=== PATIENT | female | born 1975 ===

== ENCOUNTER 2021-01-30 11:14 | Outpatient (REF) | payer OTHER, SELFPAY ==
[2021-01-30 12:03] LABS: Influenza A PCR NEGATIVE (Negative); Influenza B PCR NEGATIVE (Negative); Resp Syncy Virus RNA Qual PCR NEGATIVE (Negative); SARS COV2 PCR INHOUSE NEGATIVE (Negative)
== END 2021-01-30 11:15 | disposition home or self-care (01) ==
LOC: HO.LNP 11:14
PROVIDERS: Visit Provider Internal Medicine
DX: Z20.822 Contact with and (suspected) exposure to COVID-19 (principal)
CPT/HCPCS: 0241U

== ENCOUNTER 2021-04-03 14:42 | Outpatient (REF) | payer OTHER, SELFPAY ==
[2021-04-03 15:31] LABS: Influenza A PCR NEGATIVE (Negative); Influenza B PCR NEGATIVE (Negative); Resp Syncy Virus RNA Qual PCR NEGATIVE (Negative); SARS COV2 PCR INHOUSE POSITIVE (Negative)
== END 2021-04-03 14:43 | disposition home or self-care (01) ==
LOC: HO.LNP 14:42
PROVIDERS: Visit Provider Internal Medicine
DX: Z20.822 Contact with and (suspected) exposure to COVID-19 (principal)
CPT/HCPCS: 0241U

== ENCOUNTER 2021-08-15 07:55 | Outpatient (REF) | payer OTHER, SELFPAY ==
--- NOTE | ~2021-08-15 | MM_ITS ---
EXAMINATION: MM DIAGNOSTIC DIGITAL BREAST TOMOSYNTHESIS, BILATERAL US DIAGNOSTIC ULTRASOUND BREAST, LEFT CLINICAL INFORMATION: 45-year-old with palpable area of concern 4:00 left breast for one month, increasing. No discharge. No known family history breast cancer. The lifetime risk of breast cancer based on the Tyrer-Cuzick Model is 6%. COMPARISON: Mammography: 03/20/2019, 03/13/2019, 03/07/2018, 07/23/2016 TECHNIQUE: Digital breast tomosynthesis is performed in both the craniocaudal and mediolateral oblique views along with computer-aided detection (CAD). Synthesized 2D images are generated from the tomosynthesis. Additional views are obtained: Left spot CC, left spot MLO. Ultrasound left breast is targeted to the area of clinical concern lower outer left breast. Patient is able to directly point to the area of concern at time of imaging. Grayscale imaging and color Doppler are performed without and with harmonics. FINDINGS: The breasts are heterogeneously dense, which may obscure small masses (ACR BI-RADS breast composition Category c). Parenchymal pattern is similar to prior studies. There is no developing density or interval mass. There is no definite architectural abnormality. The axilla are unremarkable. There are no abnormal calcifications. The skin contours are smooth. Ultrasound targeted to the lower outer left breast demonstrates a subtle area of decreased echogenicity corresponding to the palpable concern with irregular shape and overall size 1.4 x 0.7 cm. There is increased color flow localized to this area. Finding resides 0.7 cm below the skin surface. There are other scattered asymmetries in the lower outer quadrant which may have similar appearance but without increased color flow. Finding is subtle and may represent benign asymmetric tissue or other benign entity such as focal fibrosis or PASH. Results are discussed with the patient at time of visit. Recommend ultrasound-guided core sampling. Patient is in agreement. Results and recommendation called to medical grade shoemaker (Linh) for Dr. Mcneal on 08/15/2021. MM/MM tomosynthesis diagnostic BI IMPRESSION: 1. Mammography shows no significant changes from prior studies. 2. Subtle ultrasound finding corresponding to area of patient's clinical palpable concern. ASSESSMENT: BI-RADS 4: Suspicious (subcategory 4A: Low suspicion for malignancy) RECOMMENDATION: Ultrasound-guided core biopsy left breast. This patient's information was entered into a reminder system with a target due date for their next mammogram.
== END 2021-08-15 07:56 | disposition home or self-care (01) ==
LOC: HO.MAMMO 07:55
PROVIDERS: PCP Internal Medicine; Visit Provider Internal Medicine
DX: N63.23 Unspecified lump in the left breast, lower outer quadrant (principal)
CPT/HCPCS: 76642; 77062; 77066

== ENCOUNTER 2021-08-21 09:09 | Outpatient (REF) | payer OTHER, SELFPAY ==
--- NOTE | ~2021-08-21 | MM_ITS ---
PROCEDURE: US GUIDED BREAST BIOPSY, LEFT CLINICAL INFORMATION: Hypoechoic vascular structure 4 clock position COMPARISON: August 25, 2021 and studies dating back to July 23, 2016 PROCEDURAL DETAILS: The details of the procedure, as well as the risks, benefits, and alternatives to the procedure were explained to the patient in detail and all of her questions were answered, after which written informed consent was obtained. Site and side were confirmed. Prior to the procedure, sonography revealed a vascular hypoechoic lesion 4:00 position 4 cm from the nipple. A time-out was performed, the lesion intended for biopsy was targeted, and the skin of the left breast was then prepped and draped in the usual sterile fashion. Using sonographic guidance, sterile technique, and 1% lidocaine without epinephrine for local anesthesia, multiple automated core biopsies were obtained through the targeted area with a 14G spring loaded Achieve core biopsy device. There was real-time confirmation of appropriate needle passage. Sampling was documented. At the completion of tissue sampling, a single butterfly-shaped metallic clip was deposited at the biopsy site. There was no evidence of immediate complication. SPECIMEN: An appropriate sample was obtained. DIGITAL POST-PROCEDURE MAMMOGRAPHY: Breast density: The tissue is extremely dense, which lowers the sensitivity of mammography. BI-RADS version 5, category D. There are no new mammographic findings demonstrated. The postprocedure 2-view direct digital mammogram reveals satisfactory positioning of the biopsy clip. The patient tolerated the procedure well and, after assuring adequate hemostasis, was discharged in good condition after reviewing postbiopsy breast care instructions. Final pathology results are pending. MM/MM diagnostic mammo unilat LT IMPRESSION: 1. No immediate complication from ultrasound-guided percutaneous biopsy left breast. 2. Ultrasound was used to localize and guide marker clip placement. 3. The 2-view direct digital postprocedure mammogram reveals satisfactory positioning of the biopsy clip. 4. Final pathology results are pending. A separate report with final recommendations will be issued once these results are made available.
== END 2021-08-21 09:10 | disposition home or self-care (01) ==
LOC: HO.MAMMO 09:09
PROVIDERS: PCP Internal Medicine; Visit Provider Surgery
DX: N63.21 Unspecified lump in the left breast, upper outer quadrant (principal)
CPT/HCPCS: 19083; 77065; 88305; 88342; 88360

== ENCOUNTER → 2021-08-27 08:54 | Outpatient (BNVA) | payer OTHER, SELFPAY | PROVIDERS: PCP Internal Medicine; Referring Provider Internal Medicine; Visit Provider Surgery | DX: N63.20 Unspecified lump in the left breast, unspecified quadrant (principal) ==

== ENCOUNTER → 2021-09-18 09:00 | Outpatient (BNV) | payer MEDICAID, OTHER, SELFPAY | PROVIDERS: PCP Internal Medicine; Referring Provider Surgery; Visit Provider Internal Medicine Medical Oncology | DX: C50.912 Malignant neoplasm of unspecified site of left female breast (principal) | CPT/HCPCS: 99204; 99213; 99214 ==

== ENCOUNTER 2021-09-23 06:53 | Day surgery (SDC) | payer OTHER, SELFPAY ==
[2021-09-17 10:19] VITALS: BMI 28.7
--- NOTE | 2021-09-22 10:25 | P.CONAN_ITS ---
Documented by User: Lluvia Chavez NP 09/22/21 10:26 HPI - Anesthesia Eval Consult details Narrative: 45yo F for Left [place] Node Biopsy, Breast Biopsy Needle Localization Breast Lumpectomy PMFSH Active Problems Active Problems: All Active Problems (Updated 09/18/21 @ 10:00 by Analy Avelar MD) Breast cancer, left (Acute) Left breast mass (Acute) Past Medical History Medical History (Updated 09/18/21 @ 10:00 by Analy Avelar MD) Breast cancer, left History of COVID-19 Left breast mass Family History Family History Other Breast cancer Surgical History Surgical History (Updated 09/18/21 @ 10:00 by Analy Avelar MD) Surgical history unknown Social History Social History Alcohol intake: never Patient Tobacco Use Status: Never used Tobacco Advance Directives Information Provided: Yes (informational brochure mailed) Advance Directives on File: No Meds Allergies Allergy/AdvReac Type Severity Reaction Status Date / Time No Known Allergies Allergy Verified 08/27/21 09:02 Active Medications: Current Medications Lidocaine HCl (Lidocaine 4 % Cream Kit) 1 appl TOPICAL ONCE ONE; Protocol Stop: 09/23/21 09:44 Exam Exam Date and Time: September 22, 2021 1025 Height,Weight and Vital Signs: Height 5 ft Weight 66.7 kg Pertinent Lab Results Pertinent Lab Results: Laboratory Tests 09/18/21 09/18/21 10:25 10:25 WBC 8.6 Hgb 11.9 L Hct 36.9 L Plt Count 341 Sodium 138 Potassium 4.8 Chloride 107 Carbon Dioxide 25 BUN 15 Creatinine 0.78 Assessment and Plan Assessment Anesthesia Assessment: Chart Reviewed Documented by User: Yaya Mccoy MD 09/23/21 10:08 PMFSH Past Medical History Medical History (Updated 09/18/21 @ 10:00 by Analy Avelar MD) Breast cancer, left History of COVID-19 Left breast mass Family History Family History Other Breast cancer Family history of problems with anesthesia: No Surgical History Surgical History (Updated 09/18/21 @ 10:00 by Analy Avelar MD) Surgical history unknown History of Problems with Anesthesia: No Social History Social History Alcohol intake: never Patient Tobacco Use Status: Never used Tobacco Advance Directives Information Provided: Yes (informational brochure mailed) Advance Directives on File: No Meds Allergies Allergy/AdvReac Type Severity Reaction Status Date / Time No Known Allergies Allergy Verified 08/27/21 09:02 Exam Airway Mallampati Class: I TM Dist: >3cm Neck ROM: Full Loose/Missing/Broken Teeth: No Assessment and Plan Final Anesthetic Review Family History of Problems with Anesthesia: No History of Problems with Anesthesia: No ASA Class: II Final Preanesthetic Review: No Changes in Pt Med Stat, Meds/Allgs Chart Reviewed, Consent Obtained/Reviewed and Anes Risks/Benef Reviewed Patient Risk: Low Procedure Risk: Low Anesthetic Plan Anesthetic Plan: GA and Agree w/ Assess. and Plan Disposition: Standard PACU
[2021-09-23] VITALS (10 sets, daily range): BP systolic 99–115; BP diastolic 54–73; PULSE 49–81; RESP 16–18; TEMP 36.3–36.8; O2SAT 97–99
--- NOTE | ~2021-09-23 | MM_ITS ---
EXAMINATION: MM MAMMOGRAM GUIDED NEEDLE LOCALIZATION BREAST, LEFT MM NEEDLE LOCALIZATION SPECIMEN FROM THE LEFT BREAST CLINICAL INFORMATION: Invasive carcinoma with ductal and lobular features left breast. COMPARISON: Mammography 08/15/2021, 08/21/2021, targeted left breast ultrasound 08/15/2021, ultrasound-guided left breast biopsy 08/21/2021. TECHNIQUE NEEDLE LOC: Proper informed consent is obtained from the patient for both the localization procedure and sentinel lymph node mapping after discussion of the procedure, potential risks and complications, and alternatives including declining the procedure today. Patient was given an opportunity for questions. The patient appeared to understand. The patient consented to the procedure and signed the consent form. GUIDANCE: Digital mammography. APPROACH: Lateral Medial. TARGET: Butterfly biopsy clip marker anterior outer quadrant. ANESTHESIA: Carbonated lidocaine 1%: 5 mL. LOCALIZATION MARKER: [place] Mamma[employer], 7.5 cm length. The skin is prepped and local anesthesia administered. The needle is positioned and position assessed with mammography. The wire is hooked into position. [place] needle protector placed. The patient tolerated the procedure well and had no immediate complication. Following the procedure, 4% lidocaine ointment was administered to the left areola and covered with Tegaderm in anticipation of nuclear lymphoscintigraphy injection for sentinel lymph node mapping. Procedure findings discussed with Dr. Carballo prior to surgery. TECHNIQUE SPECIMEN RADIOGRAPH: Imaging of the excised specimen is performed using digital mammography in 2 views. FINDINGS SPECIMEN RADIOGRAPH: The specimen shows the distal needle and distal hookwire are delivered intact. The biopsy clip marker is not demonstrated in the specimen. There are some fine calcifications adjacent to the needle, not necessarily part of the primary lesion. Results were called and discussed with Dr. Carballo in the operating room at the time of imaging. MM/MM needle loc LT IMPRESSION: 1. Status post left breast needle localization with wire hooked into position. 2. Post operative specimen radiograph obtained.
--- NOTE | ~2021-09-23 | NM_ITS ---
EXAMINATION: NM LYMPHOSCINTIGRAPHY CLINICAL INFORMATION: Malignant neoplasm of left breast. COMPARISON: None TECHNIQUE: Following explaining procedure, benefits and risk of the left breast sentinel node, a written consent was obtained by Dr. Loaiza. 2% lidocaine jelly cream was applied around the left breast areola. 30 minutes later the cream was cleaned in aseptic manner. 0.5 mCi of Lymphoseek in 4 equal doses were injected subcutaneously around the 4 corners of the areola. Imaging of the chest was obtained approximately 30 minutes later patient tolerated procedure extremely well. FINDINGS: There is isotope activity seen in the 4 quadrants around the left breast areola. There are two lymph nodes with isotope activity seen in left axilla the larger one in the anterior inferior axilla. No additional areas of lymph node activity seen. NM/NM sentinel node w imaging IMPRESSION: Two sentinel nodes visualized in left anterior axilla, the larger one anterior and inferior in the axilla, on left breast lymphoscintigraphy.
--- NOTE | 2021-09-23 09:33 | MHC.SHP ---
Pre-Procedural Eval Section A Date of Service: 09/23/21 Section B Chief Complaint: malignant neoplasm of left breast Allergies: Allergies Allergy/AdvReac Type Severity Reaction Status Date / Time No Known Allergies Allergy Verified 08/27/21 09:02 Plan I have reviewed the history and physical and performed a pertinent physical examination on my patient. No changes have occurred unless specified.
--- NOTE | 2021-09-23 12:23 | W.PM.OPN ---
Operative Note Operative Note Date of Service: 09/23/21 Narrative: Preop diagnosis: Left breast, invasive carcinoma, with ductal and lobular features Postop diagnosis: As above Procedure: Lumpectomy, left breast with needle localization, sentinel node biopsy Surgeon: Dariel Carballo MD specimen preparation assistant: GLENNY Estrada The patient is a 45 year female who had recently been diagnosed to have left breast invasive carcinoma with both ductal and lobular features on a breast biopsy. I therefore had discussion with her about treatment. She was aware of the options of breast conservation therapy versus mastectomy. She wanted to proceed with lumpectomy. I discussed with the technique of lumpectomy with needle localization and sentinel node biopsy. She was aware of the risks, benefits, and alternatives and she wanted to proceed. She was brought to the operating room placed supine on the table under general anesthesia via laryngeal mask airway. The left arm was abducted to expose the left axilla. The left breast and left axilla were prepped and draped in the usual sterile fashion. A surgical time-out was done. The patient received cefazolin The patient had earlier undergone the localization and I had reviewed the films with the radiologist. The patient had undergone nuclear scintigraphy as well for sentinel nodes. The localizing needle was seen entering from inferior and laterally going a little bit superior medially at the 4 o'clock position of the left breast. I infiltrated the planned line of incision using lidocaine 1%. I made an transverse incision on the lower outer quadrant left breast tangential to the localizing needle using blade 15. This carried down through the full-thickness of the skin and and into the breast tissue. When I then proceeded to use a curved Powell to divide breast tissue surrounding the needle. We followed the direction the needle, dividing breast tissue and making sure that we had wide margins surrounding the needle itself. I was also palpating the breast tissue as we proceeded with dissection to make sure that we were not missing any indurated area. We continued to dissect circumferentially around the entire length of the needle and made sure that I was past the needle on palpation. I completed the dissection posteriorly. I marked the superior margin with a short stitch and lateral margin with a long stitch. This was sent for immediate gross as well as immediate re- ray. I copiously irrigated. I felt for any palpable induration or any obvious lesions around the lumpectomy margins. I used electrocautery for hemostasis. I then applied a light packing to the biopsy cavity and covered this with a Tegaderm. We then proceeded to change our set up for the sentinel node biopsy. We also changed into fresh gloves. I used the nuclear probe to identify the maximal radiation counts in the axilla. I made the incision on the skin where the approximate maximal counts was using blade 15. I carried this down through the full-thickness skin with electrocautery and used the Metzenbaum scissors to dissect through the axillary fat gently. I then proceeded to continue to do sharp dissection, periodically checking orientation and direction using the nuclear probe to guide us into the elevated counts in the axilla. This appeared to be close to the apex. This was consistent with the scintigraphy imaging which I had reviewed earlier as well. With the use of the probe periodically, I was able to then identify a sentinel node. This was carefully dissected with the Metzenbaum scissors and was sent as a specimen. The count for this sentinel node was 1100. I proceeded to continue to dissect into the deep axilla and under the pectoralis and there was a positive reading on this area. I continued to gently dissect using combination of sharp dissection with the Metzenbaum scissors as well as with the fingers to identify lymph node and was able to see a lymph node with a count of 6519. This was excised and sent for specimen as well. This appeared to be a level 2 lymph node based on the location. I proceeded to then scan the entire axilla and there were no other elevated counts above 10% of the I as reading earlier. I was able to identify 3 other lymph nodes without elevated counts and all of these were sent for pathology as well. I observed for hemostasis. Once hemostasis was ensured I reapposed the subcutaneous layer with Dexon 3-0 interrupted sutures. Skin closure was achieved with Dexon 4-0 subcuticular stitch. I then received a phone call from both the radiologist as well as the pathologist. The radiologist stated that the entire localizing needle with the hook was in good position but the biopsy clip was not visualized on re-ray images. I also discussed the specimen for immediate gross with the pathologist and it appeared that we had the entire mass within the specimen but the margins superiorly as well as laterally appear to be close. I therefore proceeded to reopen the lumpectomy site, and removed more breast tissues at the area of the anterior superior border of the biopsy cavity, as well as laterally. This was sent as separate specimens as well. Since the biopsy clip was not visible on re-ray as well as immediate gross, proceeded to carefully look for any semblance of a biopsy clip in the ecxision cavity both by direct visualization as well as palpation. Despite a thorough examination, we did not identify any biopsy clip within the cavity. It was therefore likely that this was suctioned. I therefore reapposed the subcutaneous layer with Dexon 3-0 interrupted sutures. Skin closure was achieved with Dexon 4-0 subcuticularrunning stitch on the lumpectomy site. The incisions were infiltrated with Marcaine 0.5% for postop analgesia. Steri-Strips and dressings were applied and the procedure was completed. The patient tolerated procedure well with no complication noted. Initial fine counts of sponges and instruments were correct. Estimated blood loss was about 25 cc. The patient was extubated without difficulty and transferred to the recovery room with stable vital signs. Breast [place] Node Biopsy Substrate(s) used for sentinel node biopsy in the non-neoadjuvant setting: Radiotracer All significantly radioactive nodes were removed, if radionuclide was used as the substrate for localization: Yes All palpably suspicious nodes were removed, if present: Yes If clips were placed in pathology-involved nodes, those nodes were identified and removed: N/A General Surg. - Synoptic Notes Breast [place] Node Biopsy Substrate(s) used for sentinel node biopsy in the non-neoadjuvant setting: Radiotracer All significantly radioactive nodes were removed, if radionuclide was used as the substrate for localization: Yes All palpably suspicious nodes were removed, if present: Yes If clips were placed in pathology-involved nodes, those nodes were identified and removed: N/A
--- NOTE | 2021-09-23 12:38 | PM.OP ---
Brief Operative Note Date of Service: 09/23/21 Pre-op diagnosis: Left breast cancer, with both ductal and lobular features Post-op diagnosis: same Procedure: Lumpectomy, left breast with needle localization and sentinel node biopsy Surgeon: Dariel Carballo MD Anesthesia: GLMA Was an Pasting Machine Offbearer used for this Procedure?: Yes Pasting Machine Offbearer: Debora Estrada Estimated blood loss (mL): 25 Pathology: other (1.Lumpectomy specimen 2.[place] node -1100 count 3. sentinel node 2 - 6519 ; three additional lymph nodes; additional margins - superior, lateral) Condition: stable Disposition: PACU
[2021-09-23] MEDS: Acetaminophen 325 MG TABLET 650 MG PO (12:54)
[2021-09-23] MEDS: oxyCODONE HCl Immed Release 5 MG TABLET PO (12:54)
== END 2021-09-23 14:46 | disposition home or self-care (01) ==
PROVIDERS: PCP Internal Medicine; Visit Provider Surgery
PROC: (CPT 19301; principal; 2021-09-23 10:50)
PROC: (CPT 19301; 2021-09-23 10:50)
DX: C50.512 Malignant neoplasm of lower-outer quadrant of left female breast (principal); Z86.16 Personal history of COVID-19
CPT/HCPCS: 19301; 38525; 19281; 78195; 88305; 88307; 88329; 88341; 88342; A9520; J0690; J1100; J2250; J2405; J3010

== ENCOUNTER → 2021-10-06 10:33 | Outpatient (BNVA) | payer OTHER, SELFPAY | PROVIDERS: PCP Internal Medicine; Referring Provider Internal Medicine; Visit Provider Surgery ==

== ENCOUNTER 2021-10-21 09:56 | Outpatient (REF) | payer OTHER, SELFPAY ==
--- NOTE | ~2021-10-21 | PE_ITS ---
EXAMINATION: PET CT fusion skull to thigh Initial treatment strategy - PI CLINICAL INFORMATION: Left breast cancer COMPARISON: None. TECHNIQUE: Fingerstick blood sugar prior to exam was 83 mg/dL. 16.3 mCi fluorine-18 FDG administered IV. Following approximately 45 minutes of uptake, multibed PET acquisition was performed preceded by a non-contrast CT scan for the purposes of localization and attenuation correction. FINDINGS: Head and neck: Physiologic FDG distribution. Partially imaged brain is normal. No mass or midline shift. There is right maxillary sinus disease. No cervical lymphadenopathy or mass. Chest: No pulmonary nodules or masses. No hilar or mediastinal lymphadenopathy. No internal mammary lymphadenopathy. No right axillary lymphadenopathy. There is ill-defined soft tissue irregularity of the left axilla and image 187/267 measuring 2.4 x 1.7 cm, likely reflecting postoperative changes. There is mild associated FDG uptake to maximum SUV 1.6. No discrete axillary lymphadenopathy seen. No prior studies available to assess for interval change. There is symmetric uptake associated with the bilateral breasts tissues with no focal hypermetabolic abnormality. No pulmonary nodules or masses. Abdomen/pelvis: Physiologic FDG distribution. Lack of intravenous contrast limits evaluation but there is no gross focal abnormality of the liver, spleen, pancreas, bilateral kidneys, or adrenal glands. No pathologically enlarged lymphadenopathy. No ascites. There is linear uptake in the left pelvis, maximum SUV 4.7. This is more anterior in position than would be expected for the left ureter in its likely related to the left ovary, although there is misregistration between the PET and CT images. There is a normal-appearing 2.6 cm simple appearing cyst of the left ovary but no concerning left adnexal mass. Normal appearing right ovary. Normal CT appearance of the uterus. Extremities: Physiologic FDG distribution. PET/PET CT fusion skull to thigh IMPRESSION: Likely postoperative changes in the left lateral breast/axilla with mild FDG uptake maximum SUV 1.6. Consider attention on follow-up. Linear uptake in the left pelvis is physiologic and likely related to the left ovary. There is a 2.6 cm simple appearing cyst in the left ovary. If the patient is premenopausal, these would be consistent with physiologic findings for which no imaging follow-up would be recommended. If the patient is perimenopausal or postmenopausal, a pelvic ultrasound could be obtained to further evaluate the left ovary. No additional findings in the neck, chest, abdomen, or pelvis to suggest sites of residual or metastatic disease.
== END 2021-10-21 09:57 | disposition home or self-care (01) ==
LOC: HO.PET 09:56
PROVIDERS: PCP Internal Medicine; Visit Provider Internal Medicine Medical Oncology
DX: Z13.89 Encounter for screening for other disorder (principal)

== ENCOUNTER → 2021-10-22 14:31 | Outpatient (BNVA) | payer OTHER, SELFPAY | PROVIDERS: PCP Internal Medicine; Referring Provider Internal Medicine; Visit Provider Surgery ==

== ENCOUNTER 2021-10-30 07:06 | Day surgery (SDC) | payer OTHER, SELFPAY ==
--- NOTE | ~2021-10-30 | IR_ITS ---
PROCEDURE: RIGHT INTERNAL JUGULAR PORT PLACEMENT UNDER SONOGRAPHIC AND FLUOROSCOPIC GUIDANCE CLINICAL INFORMATION: Left breast cancer for chemotherapy. ACCESS: Right internal jugular vein. TECHNIQUE/FINDINGS: Informed consent was obtained from the patient prior to the procedure. During this process, the procedure and potential alternatives was explained, along with the intended outcome and benefits. The risks of the procedure, as well as the risks of not doing the procedure, were discussed. The patient was given the opportunity to ask questions regarding the procedure and appeared competent to make medical decisions. A signed consent form which documents this discussion was placed in the medical record. The patient was brought to the conventional radiology suite and a time out procedure was performed. A sonographic survey was performed for localization of venous access. The right jugular vein was confirmed to be patent. Image was sent to PACS for documentation. The right neck and anterior hemithorax was prepared. ?All elements of maximal sterile barrier technique followed including use of cap, mask, sterile gown, sterile gloves, a sterile full body drape and hand hygiene. Also followed skin preparation with 2% chlorhexidine for cutaneous antisepsis, and sterile ultrasound preparation with sterile gel and probe cover when applicable.? Following administration of local anesthesia using 1% lidocaine, a puncture was performed of the right internal jugular vein above the clavicle under direct sonographic visualization. A [employer] wire was advanced into the needle to the superior vena cava. Over the wire, a 5-Macedonian micropuncture catheter was placed and through this a 0.035 Macedonian guidewire was positioned in the inferior vena cava. Attention was then turned to creating a port pocket a few centimeters below the right clavicle. Scalpel incision was made and port pocket blunt dissected out. The 6.6-Macedonian catheter was then tunneled from the port pocket to the internal jugular puncture site. A Peel-Away sheath was then placed over the guidewire and, through the Peel-Away sheath, the port catheter was placed with the tip at the cavoatrial junction. The catheter was then cut to 22 cm and locked to the port. The port was then sewn into the port pocket with two 3-0 monofilament sutures. The port pocket was closed with a 4-0 absorbable running subcuticular suture. The port was then heparinized with Hep-Lock solution of 100 units of heparin per milliliter. The patient tolerated the procedure well. There was no evidence of complications. FLUOROSCOPY TIME: 1.4 minutes DAP: 220 cGy-cm2 IR/IR cvc insert tunnel w prt/television and radio repairer IMPRESSION: Successful placement of a 22 cm length right internal jugular port under a combination of sonographic and fluoroscopic guidance. No evidence of complications.
--- NOTE | ~2021-10-30 | IR_ITS ---
PROCEDURE: RIGHT INTERNAL JUGULAR PORT PLACEMENT UNDER SONOGRAPHIC AND FLUOROSCOPIC GUIDANCE CLINICAL INFORMATION: Left breast cancer for chemotherapy. ACCESS: Right internal jugular vein. TECHNIQUE/FINDINGS: Informed consent was obtained from the patient prior to the procedure. During this process, the procedure and potential alternatives was explained, along with the intended outcome and benefits. The risks of the procedure, as well as the risks of not doing the procedure, were discussed. The patient was given the opportunity to ask questions regarding the procedure and appeared competent to make medical decisions. A signed consent form which documents this discussion was placed in the medical record. The patient was brought to the conventional radiology suite and a time out procedure was performed. A sonographic survey was performed for localization of venous access. The right jugular vein was confirmed to be patent. Image was sent to PACS for documentation. The right neck and anterior hemithorax was prepared. ?All elements of maximal sterile barrier technique followed including use of cap, mask, sterile gown, sterile gloves, a sterile full body drape and hand hygiene. Also followed skin preparation with 2% chlorhexidine for cutaneous antisepsis, and sterile ultrasound preparation with sterile gel and probe cover when applicable.? Following administration of local anesthesia using 1% lidocaine, a puncture was performed of the right internal jugular vein above the clavicle under direct sonographic visualization. A [employer] wire was advanced into the needle to the superior vena cava. Over the wire, a 5-Somali micropuncture catheter was placed and through this a 0.035 Somali guidewire was positioned in the inferior vena cava. Attention was then turned to creating a port pocket a few centimeters below the right clavicle. Scalpel incision was made and port pocket blunt dissected out. The 6.6-Somali catheter was then tunneled from the port pocket to the internal jugular puncture site. A Peel-Away sheath was then placed over the guidewire and, through the Peel-Away sheath, the port catheter was placed with the tip at the cavoatrial junction. The catheter was then cut to 22 cm and locked to the port. The port was then sewn into the port pocket with two 3-0 monofilament sutures. The port pocket was closed with a 4-0 absorbable running subcuticular suture. The port was then heparinized with Hep-Lock solution of 100 units of heparin per milliliter. The patient tolerated the procedure well. There was no evidence of complications. FLUOROSCOPY TIME: 1.4 minutes DAP: 220 cGy-cm2 IR/IR us guide venous access IMPRESSION: Successful placement of a 22 cm length right internal jugular port under a combination of sonographic and fluoroscopic guidance. No evidence of complications.
[2021-10-30 07:20] VITALS: BMI 29.7
[2021-10-30 07:22] VITALS: BP 104/55; PULSE 60; RESP 16; TEMP 36.1; O2SAT 98
[2021-10-30 07:40] LABS: MANUAL DIFF FLAG NO
[2021-10-30 07:42] LABS: Basophils Absolute Auto 0.1 X10*3/uL (0.0-0.2); Basophils Percent Auto 0.7 % (0-2); Eosinophils Absolute Auto 0.3 X10*3/uL (0.0-0.4); Eosinophils Percent Auto 4.2 % (0-4); Hematocrit 35.1 % (37.0-47.0); Hemoglobin 11.5 g/dl (12.0-16.0); Imm Gran Abs Auto 0.01 X10*3/uL (0.00-0.03); Imm Gran Pct Auto 0.1 % (0.0-0.4); Lymphocytes Percent Auto 28.8 % (20-40); Mean Corpuscular HGB Conc 32.8 g/dl (31.0-35.0); Mean Corpuscular Hemoglobin 28.6 pg (27.0-33.0); Mean Corpuscular Volume 87.3 fL (80.0-98.0); Monocytes Absolute Auto 0.4 X10*3/uL (0.1-1.2); Neutrophils Absolute Auto 4.1 x10*3/uL (2.0-8.3); Neutrophils Percent Auto 60.2 % (45-73); Platelet Count 314 X10*3/uL (160-400); Red Blood Count 4.02 X10*6/uL (4.20-5.50); Red Cell Distribution Width 13.8 % (11.0-16.0); White Blood Count 6.9 X10*3/uL (4.8-10.8)
[2021-10-30 07:47] LABS: INTERNATIONAL NORM RATIO 0.9 (0.9-1.1); Prothrombin Time 10.2 SEC (9.9-13.0)
[2021-10-30 07:50] LABS: Partial Thromboplastin Time 32.3 SEC (24.1-38.0)
[2021-10-30 10:58] VITALS: BP 116/61; PULSE 59; RESP 16; TEMP 36.5; O2SAT 96
[2021-10-30 11:13] VITALS: BP 110/68; PULSE 56; RESP 16; O2SAT 98
[2021-10-30] MEDS: Acetaminophen 325 MG TABLET 650 MG PO (11:13)
[2021-10-30 11:28] VITALS: BP 99/55; PULSE 61; RESP 16; O2SAT 98
[2021-10-30 11:58] VITALS: BP 97/61; PULSE 58; RESP 16; TEMP 36.5; O2SAT 98
== END 2021-10-30 12:10 | disposition home or self-care (01) ==
PROVIDERS: Radiology Diagnostic Radiology; PCP Internal Medicine; Visit Provider Radiology Diagnostic Radiology
DX: Z45.2 Encounter for adjustment and management of vascular access device (principal); C50.912 Malignant neoplasm of unspecified site of left female breast; Z17.0 Estrogen receptor positive status [ER+]
CPT/HCPCS: 36415; 36561; 76937; 85025; 85610; 85730; 99152; 99153; C1769; C1788; J0690; J1642; J2250; J3010; Q9967

== ENCOUNTER → 2021-11-03 07:31 | Outpatient (REF) | payer OTHER, SELFPAY ==
--- NOTE | 2021-11-03 07:36 | CA_ITS ---
Transthoracic Echocardiogram Patient (Last, First, Middle): Elida Chamberlain, Gender: Female Date of : 1975 Age: 45 Procedure Date: 11/03/2021 Procedure Type: Transthoracic Echocardiogram Location: OP Height: 152.4 cm Weight: 65.77 kg BSA: 1.63 m2 Heart Rate: bpm BP: 122 / 70 mmHg [employer] Driver: Referring MD: Analy Avelar MD Symptoms: C50.912 Breast cancer pre chemo. Study Quality: Good ECG Rhythm: Sinus Conclusions: - The left ventricular systolic function is normal. The calculated ejection fraction is 57% by biplane method. - No obvious valvular pathology seen on this study. Findings Left Ventricle Normal left ventricular cavity size. There is normal left ventricular wall thickness. The left ventricular systolic function is normal. The calculated ejection fraction is 57% by biplane method. There is no evidence of regional wall motion abnormalities. Diastolic function is normal for age. LV peak GLS -18.2% (normal). Right Ventricle Normal right ventricular cavity size and systolic function. Atria Both atria are normal in size. Aortic Valve There is a normal trileaflet aortic valve. There is no aortic valve stenosis. There is no aortic valve regurgitation. Mitral Valve The mitral valve appears normal. There is trace mitral valve regurgitation. There is no mitral valve stenosis. Pulmonic Valve The pulmonic valve was not well visualized. Tricuspid Valve Normal tricuspid valve structure. There is trace tricuspid valve regurgitation. The pulmonary artery systolic pressure is normal. Great Vessels The aortic annulus, sinuses of valsalva, and asc aorta are normal in size. Venous The inferior vena cava is normal in size and collapses greater than 50% with inspiration. Pericardium/Pleural There is no evidence of pericardial effusion. Prior Study Comparison No prior study available for comparison. Recommendations, Care & Conclusions No obvious valvular pathology seen on this study. Measurements 2D Linear Measurements IVSd: 0.93 0.6-0.9/0.6-1.0 cm LVIDd: 4.21 3.9-5.3/4.2-5.9 cm LVIDd Index: 2.58 2.4-3.2/2.2-3.1 cm/m2 LVIDs: 2.16 2.0-3.6 cm LVPWd: 0.83 0.7-1.1 cm Ao Root: 2.90 2.1-3.5 cm LA Diam: 2.90 2.7-3.8/3.0-4.0 cm LAIDs Index: 1.78 1.5-2.3 cm/m2 LV Mass: 144.02 67-162/88-224 g LV Mass Index: 88.35 43-95/49-115 g/m2 LVOT Diam: 2.10 3.0+(-)1.3 cm 2D Systolic Function EF 4C: 58.10 >55% EF 2C: 56.20 >55% EF BiP: 56.90 >55% Mitral Valve MV Pk E: 0.80 MV PK A: 0.91 MV Decel Time: 153.00 E/A: 0.90 E'Lateral: 11.70 E'Medial: 7.40 E/E' Med: 10.80 E/E' Lat: 6.80 PHT: 45.00 MVA PHT: 4.89 Decel [place]: 5.21 Aortic Valve AoV Pk Zohaib: 1.23 AoV Mn Zohaib: 0.91 AoV VTI: 0.27 AoV Pk Grad: 6.00 Aov Mn Grad: 4.00 JENNIFFER Cont.VTI: 3.18 LVOT LVOT Pk Zohaib: 1.11 LVOT Mn Zohaib: 0.77 LVOT VTI: 0.25 LVOT Pk Grad: 5.00 LVOT Mn Grad: 3.00 LVOT Diam: 2.10 LVOT Area: 3.46 Diastolic Function MV Pk E: 0.80 MV Pk A: 0.91 E/A: 0.90 E'Medial: 7.40 E/E' Med: 10.80 E' Laterial: 11.70 E/E' Lat: 6.80 Right Ventricle TAPSE (mm): 25.00 TVS' Zohaib: 11.00 Tricuspid Valve TR Pk Zohaib: 1.55 TR Pk Grad: 10.00 Great Vessels Aorta Ao Root-2D: 2.90 2.0-3.7 cm Ao Asc: 2.70 2.1-3.4 cm Pulmonary Valve PV Pk Zohaib: 0.88 Peak PV Grad: 3.00 Updated in Other Vendor System with Status of Final Rainer Aguilera MD electronically signed on 11/03/2021 3:07:40 PM with status of Final
== END ==
LOC: HO.CARD 07:31
PROVIDERS: PCP Internal Medicine; Visit Provider Internal Medicine Medical Oncology
DX: C50.912 Malignant neoplasm of unspecified site of left female breast (principal)
CPT/HCPCS: 93306; 93356

== ENCOUNTER 2021-11-05 08:01 | Outpatient (REF) | payer OTHER, SELFPAY ==
--- NOTE | ~2021-11-05 | MR_ITS ---
EXAMINATION: MR BREAST WITHOUT AND WITH CONTRAST, BILATERAL CLINICAL INFORMATION: Left breast pain. History of left breast invasive carcinoma status lumpectomy 09/23/2021. COMPARISON: No previous MRI. Mammogram and ultrasound 08/15/2021 TECHNIQUE: Imaging was performed with a dedicated breast coil. Prior to the administration of contrast, bilateral axial T1 and bilateral axial T2 weighted sequences were obtained. After the uneventful administration of?6.5 mL of Gadavist, dynamic contrast-enhanced VIBRANT series through the breasts in the axial plane were performed. Subtracted images were performed and reviewed. A delayed sagittal sequence through both breasts was acquired. Additionally, CAD post-processing, including maximum intensity projections, 3-D reconstructions and kinetic analysis, were performed an independent workstation and reviewed by the interpreting radiologist is a portion of this exam. FINDINGS: The patient's fibroglandular tissue demonstrates moderate background enhancement. LEFT BREAST: In the 3 to 4:00 position of the left breast there is a T2 heterogeneous genius hyperintense collection which demonstrated some enhancement measuring up to approximately 1.8 cm. This area represents the site of known malignancy. There is nonmasslike enhancement which extends posteriorly from this lesion. In addition, there is a focal area of nonmasslike enhancement noted at 3:00, 5.8 cm from the nipple measuring approximately 1.1 cm (image 72, series 100). This area demonstrates aggressive or type I enhancement and is considered probably benign. The enhancement pattern could be postsurgical. Note is made of fairly extensive circumferential enhancement associated with the lumpectomy site in the left breast. There are scattered foci of enhancement. There is an oval enhancing mass in the 12:00 position of the left breast measuring up to 1.0 cm. The mass demonstrates increased signal intensity on the T2-weighted images. Review of recent mammography demonstrates to the stability of this finding dating back to 03/07/2018 on tomosynthesis. Finding is considered benign. No other suspicious nonmasslike or masslike enhancement. No suspicious masslike or non-masslike enhancement. No abnormal skin thickening or nipple retraction. No abnormal architectural distortion. Review of the T2 weighted images demonstrates no fibrocystic changes or dilated ducts. Review of kinetic images reveals no additional findings. RIGHT BREAST: Port-A-Cath noted in the upper inner right chest. There is mild diffuse low-level background proximal enhancement throughout the left breast in addition to scattered foci of enhancement. No suspicious masslike or non-masslike enhancement. No abnormal skin thickening or nipple retraction. No abnormal architectural distortion. Review of the T2 weighted images demonstrates no fibrocystic changes or dilated ducts. Review of kinetic images reveals no additional findings. There is no suspicious internal mammary chain or axillary adenopathy. Limited views of the chest and abdomen are unremarkable. MR/MR breast BI wo/w con IMPRESSION: 1. Probably benign linear enhancement in the 3 to 4:00 position of the left breast. Imaging findings are possibly postsurgical in nature. Recommend attention on follow-up MRI in 6-12 months. 2. Lumpectomy site noted in the lower outer quadrant of the left breast with associated seroma, hematoma and circumferential enhancement. 3. No suspicious right breast findings. ASSESSMENT: LEFT BREAST: BI-RADS 3 - Probably benign finding (s). Short interval followup suggested. RIGHT BREAST: BI-RADS 1-Negative RECOMMENDATIONS: Continued mammographic surveillance. Follow-up MRI in 6-12 months.
== END 2021-11-05 08:02 | disposition home or self-care (01) ==
LOC: HO.MRI 08:01
PROVIDERS: PCP Internal Medicine; Visit Provider Internal Medicine Medical Oncology
DX: C50.912 Malignant neoplasm of unspecified site of left female breast (principal)
CPT/HCPCS: 77049; A9585

== ENCOUNTER 2021-11-06 08:40 | Outpatient (REF) | payer OTHER, SELFPAY ==
--- NOTE | ~2021-11-06 | MM_ITS ---
EXAMINATION: BONE DENSITOMETRY CLINICAL INDICATION: Perimenopausal. Diagnosed with breast cancer. COMPARISON: This is the patient's baseline examination. TECHNIQUE: Using a [email or web address] DXA System (software version: 13.1) manufactured by [employer], dual-energy x-ray absorptiometry was performed of the lumbar spine and left hip. The images are of good technical quality. Based on ISCD (International Society for Clinical Densitometry) standards of reporting, Z-scores instead of T-scores are reported in this premenopausal woman. Summary results are attached. FINDINGS: AP SPINE L1-L4: BMD 1.306 g/cm2, T-score 1.1, Z-score 1.2, Z-score within expected range for age. LEFT FEMUR, NECK: BMD 1.100 g/cm2, T-score 0.4, Z-score 1.1, Z-score within expected range for age. LEFT FEMUR, TOTAL: BMD 1.317 g/cm2, T-score 2.5, Z-score 2.8, Z-score within expected range for age. IDENTIFIED RISK FACTORS: None listed. HISTORY OF FRACTURE: None listed. MEDICATIONS: Vitamin D. MM/XR DEXA axial skeleton IMPRESSION: 1. DIAGNOSIS: Based on the lowest Z-score value of 1.1 in the femoral neck, the patient's bone density is within the expected range for age. 2. 10-YEAR FRACTURE RISK PREDICTION, FRAX: Not performed in this perimenopausal patient. 3. Treatment Recommendations: NOF guidelines recommend consideration for treatment in postmenopausal women and men age 50 and older presenting with the following: -A hip or vertebral (clinical or morphometric) fracture. -T-score less than or equal to -2.5 at the femoral neck or spine after appropriate evaluation to exclude secondary causes. -Low bone mass at the hip or spine and a 10-year fracture probability by FRAX of greater than or equal to 3% for hip fracture or greater than or equal to 20% for major osteoporotic fracture based on the [place] adapted WHO algorithm. 4. Other Recommendations: All treatment decisions require clinical judgment and consideration of individual patient factors, including patient preferences, comorbidities, previous drug use, risk factors not captured in the FRAX model (e.g. frailty, falls, vitamin D deficiency, increased bone turnover, interval significant decline in bone density) and possible under or overestimation of fracture risk by FRAX. FUTURE SCAN RECOMMENDATION: People with diagnosed cases of osteoporosis or at high risk for fracture should have regular bone mineral density tests. For patients eligible for Medicare, routine testing is allowed once every 2 years. The testing frequency can be increased to one year for patients who have rapidly progressing disease, those who are receiving or discontinuing medical therapy to restore bone mass, or have additional risk factors.
== END 2021-11-06 08:41 | disposition home or self-care (01) ==
LOC: HO.MAMMO 08:40
PROVIDERS: PCP Internal Medicine; Visit Provider Internal Medicine Medical Oncology
DX: Z13.820 Encounter for screening for osteoporosis (principal); C50.912 Malignant neoplasm of unspecified site of left female breast; Z79.899 Other long term (current) drug therapy
CPT/HCPCS: 77080

== ENCOUNTER → 2021-12-18 10:53 | Outpatient (BNVA) | payer OTHER, SELFPAY | PROVIDERS: PCP Internal Medicine; Referring Provider Internal Medicine; Visit Provider Surgery ==

== ENCOUNTER → 2022-02-26 10:21 | Outpatient (REF) | payer OTHER, SELFPAY ==
--- NOTE | 2022-02-26 10:24 | CA_ITS ---
Transthoracic Echocardiogram Patient (Last, First, Middle): Elida Chamberlain (Abeba), Gender: Female Date of : 1975 Age: 46 Procedure Date: 02/26/2022 Procedure Type: Transthoracic Echocardiogram Location: OP Height: 152.4 cm Weight: 68.04 kg BSA: 1.65 m2 Heart Rate: bpm BP: 107 / mmHg [employer] Developer: DSG Referring MD: Analy Avelar MD Symptoms: Breast cancer.On adriamycin based chemotherapy Study Quality: Good ECG Rhythm: Sinus Conclusions: - The left ventricular systolic function is normal. The calculated ejection fraction is 62% by biplane method. Findings Left Ventricle Normal left ventricular cavity size. The left ventricular systolic function is normal. The calculated ejection fraction is 62% by biplane method. There is no evidence of regional wall motion abnormalities. LVEF by 3D 62%. LV peak GLS -18.1% (normal). Right Ventricle Normal right ventricular cavity size and systolic function. Pericardium/Pleural There is a trivial pericardial effusion. Prior Study Comparison No significant change compared to prior study dated: 11/03/2021. Measurements 2D Linear Measurements LVIDd: 4.45 3.9-5.3/4.2-5.9 cm LVIDd Index: 2.70 2.4-3.2/2.2-3.1 cm/m2 LVIDs: 3.11 2.0-3.6 cm 2D Systolic Function EF 4C: 61.20 >55% EF 2C: 62.10 >55% EF BiP: 61.80 >55% Mitral Valve MV Pk E: 0.79 MV PK A: 0.82 MV Decel Time: 163.00 E/A: 1.00 E'Lateral: 10.40 E'Medial: 7.72 E/E' Med: 10.20 E/E' Lat: 7.60 PHT: 48.00 MVA PHT: 4.58 Decel [place]: 4.83 Diastolic Function MV Pk E: 0.79 MV Pk A: 0.82 E/A: 1.00 E'Medial: 7.72 E/E' Med: 10.20 E' Laterial: 10.40 E/E' Lat: 7.60 Right Ventricle TAPSE (mm): 2.08 TVS' Zohaib: 16.50 Updated in Other Vendor System with Status of Final Rainer Willy MD electronically signed on 02/28/2022 1:48:01 PM with status of Final
== END ==
LOC: HO.CARD 10:21
PROVIDERS: Visit Provider Internal Medicine Medical Oncology
DX: C50.919 Malignant neoplasm of unspecified site of unspecified female breast (principal); Z79.899 Other long term (current) drug therapy
CPT/HCPCS: 93308; 93356

== ENCOUNTER 2022-03-18 12:56 | Outpatient (REF) | payer OTHER, MEDICAID, SELFPAY ==
--- NOTE | ~2022-03-18 | US_ITS ---
EXAMINATION: US VENOUS WITH DOPPLER UPPER EXTREMITY, LEFT CLINICAL INFORMATION: Left upper extremity pain. COMPARISON: None TECHNIQUE: Ultrasound of the upper extremity is performed using compression sonography and color and pulse Doppler flow with assessment of augmentation of flow. There is also imaging and Doppler assessment of the jugular and subclavian veins. Spectral analysis with color-flow imaging is performed. FINDINGS: Respiratory variation, normal compression, and augmented flow are noted throughout the upper extremity including the axillary, brachial, cubital, and radial and ulnar veins. There is normal flow in the internal jugular and subclavian veins. There is no visible deep or superficial thrombophlebitis. If the patient's symptoms progress, a followup ultrasound in 5 -7 days might be of value to exclude proximal propagation from a nonvisualized distal arm vein. US/US venous duplex UE LT IMPRESSION: No DVT demonstrated in the left upper extremity.
== END 2022-03-18 12:57 | disposition home or self-care (01) ==
LOC: HO.US 12:56
PROVIDERS: Visit Provider Internal Medicine Medical Oncology
DX: M79.602 Pain in left arm (principal)
CPT/HCPCS: 93971

== ENCOUNTER 2022-04-14 08:30 | Outpatient (RCR) | payer OTHER, MEDICAID, SELFPAY ==
--- NOTE | 2022-04-10 10:49 | MHC.OT.OLE ---
[address] [phone] F: [phone] Occupational Therapy Lymphedema Evaluation Diagnosis: Left breast Lymphedema Date of Onset: 02/27/22 Attending Provider: Analy Avelar MD Prescribed Treatment: Eval and treat MD Follow Up Appointment: History of Current Condition: Pt with left breast ca , s/p lumpectomy and 5 LNs excised. Pt reports onset of left side pain approx 3 weeks ago, possibly related to wt lifting in the [employer] program. Currently she has 2 chemo treatments left ending on 04/02/22. 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 Leisure Activities/Hobbies: Gym Timeliner. Machines.. Walks 1x wk 3 mi Current Level of Function and Occupation Self-Care and Home Care: Holding back on lifting..avoiding upper body resistance ex and activities, due to onset of pain and lymphedema precautions Employment Status: OOW since surgery to RTW 04/19/22 Leisure Activites/Hobbies: Avoiding gym the past two weeks Driving: WNL Sleeping: WFL Vision: Balance: Pain Assessment Pain Score: 6 Pain Scale Used: Numeric (0 - 10) Pain Location and Description: 5-6 left axilla and inferior left breast.. Ache , tender Aggravating Factors: Alleviating Factors: Skin and Soft Tissue Assessment Skin and Soft Tissue: Swelling Comments: Mild edema .see edema form Mild LUE edema note prox to wrist to shoulder with palpation. Mild left axilla cording , one cord. Axilla tender to light palpation Mild soft edema inferior to left breast , tender to light palpation No color or temperature changes noted Nerve assessment Ulnar Nerve: Median Nerve: Radial Nerve: Comments: Sensory Assessment Temperature: Light Touch: WNL Proprioception: Vibration: Comments: 04/10/22 Left arm upper arm sleeve appears equal to right . 04/09/22 Volumetric arm measurements taken right 1800 ml....left 1770 ml Edema Assessment Upper Extremity: Left Impaired Lower Extremity: Comments: See edema form. Mild LUE edema note prox to wrist to shoulder with palpation. Mild left axilla cording , one cord. Axilla tender to light palpation Mild soft edema inferior to left breast , tender to light palpation No color or temperature changes noted Dexterity Assessment Dexterity: WNL Comments: Special Tests Comments: AROM (PROM) Strength Lower Extremity Hip Flexion: Knee Flexion: Knee Extension: Ankle Dorsiflexion: Ankle Plantarflexion: Ankle Eversion: Ankle Inversion: Comments: Cervical Flexion: Extension: Lateral Flexion: Rotation: Comments: Shoulder Flexion: Extension: Abduction: Internal Rotation: External Rotation: Comments: WFL . Flexion: Extension: Abduction: Internal Rotation: External Rotation: Comments: Elbow Flexion: Extension: Forearm Pronation: Forearm Supination: Comments: Flexion: Extension: Forearm Pronation: Forearm Supination: Comments: Wrist Flexion: Extension: Ulnar Deviation: Radial Deviation: Comments: Flexion: Extension: Ulnar Deviation: Radial Deviation: Comments: Thumb Thumb CMC Flexion: Thumb MCP Flexion: Thumb IP Flexion: Radial Abduction: Palmar Abduction: Opposition: Comments: Digits Index MCP: PIP: DIP: Long MCP: PIP: DIP: Ring MCP: PIP: DIP: Small MCP: PIP: DIP: Comments: Gross Grasp: Lateral Pinch: Two-Point Pinch: Three-Jaw Jesus: Comments: WNL Patient Education 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 Patient verbalizes Barriers to Learning: None Readiness for Learning: Accepting Who was educated? Patient Comments: Plan of Care Assessment: Mild LUE edema note prox to wrist to shoulder with palpation. Mild left axilla cording , one cord. Axilla tender to light palpation Mild soft edema inferior to left breast , tender to light palpation No color or temperature changes noted STG Duration: 2 wks Short Term Goals: Pt will understand lymphedema precautions to decrease the risk fo infection and exacerbation for the lymphedema Demonstrated a decrease in arm edema which will improve tissue health and dercrease the risk of infection Dec axillary cording noted with shoulder flexion/reaching overhead Dec pain with self massage Patient will perform a self MDL protoclo with minimal assistance to help reduce swelling and pain and thus improve ROM and mobility with daily activities LTG Duration: 4 wks 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 Pt will be pain free with daily activities including participating in the [employer] program. Pt will be indep with her HEP and lymphedema management to help prevent edema relapse and worsening of lymphedema. Frequency and Duration: The patient will be seen 3x wk x 4 wks Treatment Plan: Therapeutic Exercise Therapeutic Activity Home Exercise Program Patient Education Edema Control ADL Training Treatment Plan Comments: Lymphedema Treatment Plan: Self Care Training: bandaging, skin care, self massage Lymphedema Treatment Plan Comments: Electronically Signed By: Geovanna Rodriguez OT CHT CLT Reviewed/agree with student documentation: N/A Therapist: Please sign and return to therapist, thank you for your referral.
--- NOTE | 2022-09-18 14:02 | MHC.OT.DC ---
[address] [phone] F: [phone] Occupational Therapy Discharge Note Provider: Analy Avelar Diagnosis: Upper extremity lymphedema Mild axillary cording Date of Surgery: Date of Evaluation: Date of Discharge: Treatments to Date: 6 Cancellations to Date: No Shows to Date: Discharge Status: Achieved Goals Discharge Summary: Arm edema and arm and chest wall pain improved. Arm circumference right equal to left. Con't small pocket of fluid at dorsal wrist and distal forearm, superior breast and inferior to left breast. Non tender Axillary cording resolved Pt demo indep with self massage, self bandaging and decongestive ther ex Pt is active in the [employer] Program Pt was fit with a compression sleeve and gauntlet. Pt to purchase a compression tank top Electronically Signed By: Geovanna Rodriguez OT CHT CLT Reviewed/agree with student documentation: N/A Therapist: Please Sign and return to therapist, thank you for your referral.
== END 2022-09-18 14:02 | disposition home or self-care (01) ==
LOC: HO.OT 08:30
PROVIDERS: PCP Internal Medicine; Visit Provider Internal Medicine Medical Oncology
DX: I89.0 Lymphedema, not elsewhere classified (principal)
CPT/HCPCS: 97140

== ENCOUNTER 2022-08-18 06:00 | Outpatient (REF) | payer OTHER, MEDICAID, SELFPAY ==
[2022-08-18 06:07] LABS: MANUAL DIFF FLAG NO
[2022-08-18 07:17] LABS: Basophils Percent Auto 0.6 % (0-2); Eosinophils Absolute Auto 0.1 X10*3/uL (0.0-0.4); Eosinophils Percent Auto 2.7 % (0-4); Hematocrit 37.2 % (37.0-47.0); Hemoglobin 11.9 g/dl (12.0-16.0); Imm Gran Abs Auto 0.01 X10*3/uL (0.00-0.03); Imm Gran Pct Auto 0.2 % (0.0-0.4); Lymphocytes Absolute Auto 1.3 X10*3/uL (1.2-4.9); Lymphocytes Percent Auto 26.5 % (20-40); Mean Corpuscular Hemoglobin 28.2 pg (27.0-33.0); Mean Corpuscular Volume 88.2 fL (80.0-98.0); Mean Platelet Volume 9.1 fL (9.4-12.3); Monocytes Absolute Auto 0.4 X10*3/uL (0.1-1.2); Monocytes Percent Auto 7.7 % (2-11); Neutrophils Percent Auto 62.3 % (45-73); Platelet Count 280 X10*3/uL (160-400); Red Blood Count 4.22 X10*6/uL (4.20-5.50); Red Cell Distribution Width 13.2 % (11.0-16.0); White Blood Count 4.8 X10*3/uL (4.8-10.8)
[2022-08-18 07:48] LABS: Alanine Aminotransferase 20 U/L (0-31); Albumin Level 4.4 g/dL (3.5-5.0); Alkaline Phosphatase 61 U/L (39-117); Anion Gap 15 (12-20); Aspartate Amino Transferase 22 U/L (5-31); Bilirubin Total 0.6 mg/dL (0.0-1.0); Blood Urea Nitrogen 19 mg/dL (9-16); C Reactive Protein 0.14 mg/dL (< or = 0.50); Calcium 9.8 mg/dL (8.4-10.2); Carbon Dioxide 27 mmol/L (22-29); Chloride 104 mmol/L (96-108); Cholesterol 247 mg/dL; Estimated Glomerular Filt Rate > 60; Glucose Fasting 84 mg/dL (60-99); HDL Cholesterol 57 mg/dL; LDL Cholesterol Calculated 174 mg/dl; Potassium 4.5 mmol/L (3.3-5.1); Sodium 141 mmol/L (135-145); Total Protein 7.1 g/dL (6.5-8.0); Triglycerides 82 mg/dL
[2022-08-18 08:12] LABS: Vitamin D 25-OH Total 44.2 ng/mL (>30)
[2022-08-18 08:21] LABS: Vitamin B12 601 pg/mL (200-900)
== END 2022-08-18 06:01 | disposition home or self-care (01) ==
LOC: HO.LAB 06:00
PROVIDERS: PCP Internal Medicine; Visit Provider Internal Medicine
DX: E78.00 Pure hypercholesterolemia, unspecified (principal); G62.9 Polyneuropathy, unspecified; Z83.3 Family history of diabetes mellitus
CPT/HCPCS: 36415; 80053; 80061; 82306; 82607; 85025; 86140

== ENCOUNTER 2022-09-24 08:58 | Outpatient (REF) | payer OTHER, MEDICAID, SELFPAY ==
--- NOTE | ~2022-09-24 | MM_ITS ---
EXAMINATION: MM DIAGNOSTIC DIGITAL BREAST TOMOSYNTHESIS, BILATERAL CLINICAL INFORMATION: Left breast invasive cancer with ductal and lobular features status post lumpectomy 09/23/2021. Due for yearly. COMPARISON: Mammography: 09/23/2021, 08/21/2021, 08/15/2021, 03/20/2019, 03/13/2019 TECHNIQUE: Digital breast tomosynthesis is performed in both the craniocaudal and mediolateral oblique views along with computer-aided detection (CAD). Synthesized 2D images are generated from the tomosynthesis. Additional magnification left CC and magnification left ML views are obtained. FINDINGS: The breasts are heterogeneously dense, which may obscure small masses (ACR BI-RADS breast composition Category c). There are expected post therapy changes on the left with mild reduced breast size and scarring. The biopsy clip marker was not noted on the specimen x-ray on day of lumpectomy. There is no biopsy clip marker is seen remaining in the breast. A port overlies the right axilla. There is no interval mass or abnormal calcifications. No significant changes. Results are provided to the patient at time of visit by the technologist. MM/MM tomosynthesis diagnostic BI IMPRESSION: -No mammographic evidence of malignancy. -Post therapy changes on left. ASSESSMENT: BI-RADS 2: Benign RECOMMENDATION: Annual bilateral mammography. This patient's information was entered into a reminder system with a target due date for their next mammogram.
== END 2022-09-24 08:59 | disposition home or self-care (01) ==
LOC: HO.MAMMO 08:58
PROVIDERS: PCP Internal Medicine; Visit Provider Internal Medicine Medical Oncology
DX: C50.912 Malignant neoplasm of unspecified site of left female breast (principal)
CPT/HCPCS: 77062; 77066

== ENCOUNTER → 2022-12-28 10:17 | Outpatient (BNVA) | payer MEDICAID, SELFPAY | PROVIDERS: PCP Internal Medicine; Visit Provider Surgery | DX: Z85.3 Personal history of malignant neoplasm of breast (principal) | CPT/HCPCS: 99212 ==

== ENCOUNTER 2023-02-15 14:18 | Outpatient (REF) | payer MEDICAID, SELFPAY ==
[2023-02-15 15:27] LABS: INTERNATIONAL NORM RATIO 0.9 (0.9-1.1); Prothrombin Time 10.8 SEC (10.0-13.1)
[2023-02-15 15:30] LABS: Partial Thromboplastin Time 31.5 SEC (26.0-36.4)
== END 2023-02-15 14:19 | disposition home or self-care (01) ==
LOC: HO.LAB 14:18
PROVIDERS: PCP Internal Medicine; Visit Provider Internal Medicine Medical Oncology
DX: C50.919 Malignant neoplasm of unspecified site of unspecified female breast (principal)
CPT/HCPCS: 36415; 85610; 85730

== ENCOUNTER 2023-02-16 08:54 | Day surgery (SDC) | payer OTHER, SELFPAY ==
--- NOTE | ~2023-02-16 | IR_ITS ---
PROCEDURE: REMOVAL OF PORT-A-CATH COMPARISON: Insertion of Port-A-Cath 10/30/2021. CLINICAL INDICATION: Completion of chemotherapy for left breast cancer. Port-A-Cath is not needed. TECHNIQUE: Following explaining fluoroscopy-guided removal of Port-A-Cath procedure, benefits and risk, a written consent was obtained. Patient was placed supine on fluoroscopy table and anterior aspect of right upper chest was cleaned in usual sterile manner. A single image was obtained over the right chest documenting the Port-A-Cath. 1% lidocaine was injected at puncture site. A small skin incision was performed. Utilizing artery forceps blunt dissection was performed around the port as well as a large segment of the proximal catheter due to significant scarring. After much difficulty the catheter and the port was removed and complete hemostasis achieved at puncture site. The inside incision was sutured with 3-0 subcuticular absorbable thread. The skin incision was sutured with 4-0 absorbable sutures. Sterile dressing was applied postprocedure. Patient tolerated procedure extremely well. Conscious sedation was given and patient monitored by IR nursing and operating radiologist. IR/IR cvc remove tunnel w prt/stock taker FINDINGS/IMPRESSION: Successful removal of 22 cm long right-sided Port-A-Cath. There was at least 5 mL of bleeding noted. Hemostasis was achieved following the procedure. Simple pressure dressing was applied at the puncture site. Fluoroscopy time: 0.1 minute Sedation: 71 minutes Dose area product: 10 cGy-cm2
[2023-02-16 09:08] VITALS: BMI 26.5
[2023-02-16] MEDS: Lidocaine HCl 1 % MPF 5 ML VIAL SUBCUT (12:04)
[2023-02-16 12:20] VITALS: BP 102/62; PULSE 64; RESP 18; TEMP 36.7; O2SAT 99
[2023-02-16 12:35] VITALS: BP 110/65; PULSE 59; RESP 18; O2SAT 99
[2023-02-16 12:50] VITALS: BP 109/57; PULSE 50; RESP 18; O2SAT 99
[2023-02-16 13:05] VITALS: BP 98/54; PULSE 45; RESP 18; O2SAT 99
[2023-02-16 13:35] VITALS: BP 100/58; PULSE 66; RESP 17; O2SAT 99
[2023-02-16 14:05] VITALS: BP 106/64; PULSE 56; RESP 15; O2SAT 99
== END 2023-02-16 14:27 | disposition home or self-care (01) ==
PROVIDERS: PCP Internal Medicine; Visit Provider Radiology Diagnostic Radiology
PROC: (CPT 36590; principal; 2023-02-16 10:30)
DX: Z45.2 Encounter for adjustment and management of vascular access device (principal); C50.912 Malignant neoplasm of unspecified site of left female breast; Z17.0 Estrogen receptor positive status [ER+]; Z92.21 Personal history of antineoplastic chemotherapy; Z98.51 Tubal ligation status; Z86.16 Personal history of COVID-19
CPT/HCPCS: 36590; 99152; 99153; J2250; J3010

== ENCOUNTER 2023-07-14 10:48 | Outpatient (AMB) | payer OTHER, SELFPAY ==
[2023-07-14 11:05] VITALS: BP 110/78; PULSE 78; O2SAT 98; BMI 25.7
--- NOTE | 2023-07-14 11:05 | A.OFFVIS_ITS ---
Intake Vital Signs 07/14/23 11:05 Height 5 ft Weight 131 lb 7 oz BMI 25.7 BP 110/78 Blood Pressure Location Rt brachial Position Sitting Pulse 78 Pulse Source Pulse Oximeter Pulse Oximetry (%) 98 Oxygen Delivery Method Room Air Intake Visit Reasons: NPV-Peripheral Neuropathy-confirm Intake Note: Patient presents for peripheral neuropathy evaluation Allergies gaabpentin Adverse Reaction (Severe, Uncoded 07/14/23 11:42) suicidal Medication List - Last Reconciled 07/14/23 by Nieves Stark MD cholecalciferol (vitamin D3) (Vitamin D3) 50 mcg PO DAILY letrozole 2.5 mg PO DAILY magnesium oxide 400 mg PO BEDTIME pregabalin (Lyrica) 50 mg PO BID ropinirole 0.25 mg PO BEDTIME HPI HPI Comments History of Present Illness Details 47y/o female with h/o breast cancer comes for evaluation of neuropathy. She was diagnosed with Left Breast Ca( invasive carcinoma with ductal and lobular features) in Jul 2021 and had lumpectomy . she had chemo with doxorubicin, cyclophosphamide, palitaxel followed by radiation therapy. Her last chemo was about 1 year ago. During radiation ( 1 year ago)she started noticing pain and pressure in both her feet . Initially she thought it was related to her sneakers. The pressure is present rest .she also has numbness and tingling on and off in her feet. SHe describes the pressure and discomfort in her feet usually at rest and worse at night. Movement helps. She denies any backpain and neck pain . she has h/o anemia when she is very tired she has involuntary leg movements and restlessness. Now she also has some symptoms in her hands. she was tried on gabapentin but she could not tolerate - had suicidal thoughts Lyrica helped her to sleep Since her chemo she has been having difficulty maintaining sleep. Now she smokes weed whens he wakes up in the middle of the night. 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 .s eh averages [id number] steps a day [facility] Medical History (Updated 07/14/23 @ 11:57 by Nieves Stark MD) Breast cancer, left History of breast cancer History of COVID-19 Invasive ductal carcinoma of breast Left breast mass Numbness and tingling Restless legs syndrome (RLS) Surgical History History of lumpectomy of left breast History of tubal ligation Surgical history unknown Family History Other Breast cancer Social History Household Members: Children Housing: House Are you a primary care associate to a significant other at home: No Do you presently have visiting nurse or other home services: No Alcohol intake: never Patient Tobacco Use Status: Never used Tobacco service: No Current occupational status: employed Female Reproductive History Menstrual Age of Menarche: 15 Review of Systems Const Denies chills and Denies fever(s) Card Denies chest pain, Denies dyspnea and Denies dyspnea on exertion Resp Denies cough, Denies dyspnea and Denies dyspnea on exertion GI Denies hematochezia and Denies change in bowel habits Denies hematuria Musc Denies back pain and Denies limited range of motion Neuro Denies focal weakness and Denies convulsions Psych Denies depression and Denies mood swings Physical Exam Vital Signs: BMI result Body Mass Index 25.7 Const General: cooperative, healthy appearing and comfortable Nutritional Appearance: average body habitus Orientation/consciousness: patient oriented x3 Eyes Pupils: Equal, round and reactive pupils present Neuro General: patient oriented x3, gait normal, tone normal, moves all extremities and no focal motor deficits Cranial nerves: Yes Facial sensation intact/muscles of mastication intact, Yes Equal, round and reactive pupils present, Yes Bilaterally intact EOM present, Yes Nystagmus not present, Yes Normal facial strength present and Yes Midline tongue present Cognition (Neuro): normal cognition Gait exam (Neuro): Normal gait present Motor exam (neuro): 5/5 motor strength present throughout and Normal motor muscle tone present throughout Sensory Exam: other (normal PP touch ) Deep tendon reflexes (DTR's): Right triceps reflex intensity grade: 2+, Left triceps reflex intensity grade: 2+, Rt Biceps (C5, C6): 2+, Left biceps reflex intensity grade: 2+, Right brachioradialis reflex intensity grade: 2+, Left brachioradialis reflex intensity grade: 2+, Right patellar reflex intensity grade: 2+, Left patellar reflex intensity grade: 2+, Right ankle reflex intensity grade: 2+ and Left ankle reflex intensity grade: 2+ Coordination: [id number] test normal Assessment & Plan Assessment & Plan (1) Restless legs syndrome (RLS): Comment: pressure and discomfort at rest with some relief on movement Code(s): G2.81 - Restless legs syndrome (2) Numbness and tingling: Comment: ? restless legs ? neuropathy ( unlikely) Code(s): R20.0 - Anesthesia of skin; R20.2 - Paresthesia of skin Plan I will check her TSH ferritin B12 and D levels to r/o reversible causes of RLS. Will consider sleep study in future EMG NCS to evaluate for possible neuropathy I will trial her on ropinirole 0.24mg 1-4 tabs a day - she can start in the evening when her symptoms are worse. Continue lyrica as needed. Orders: Orders Vitamin B12 and Folate Today G2 - Restless legs syndrome Ferritin Today G2.81 - Restless legs syndrome TSH reflex Free T4 Today G2. - Restless legs syndrome Vitamin D 25-OH (D2 and D3) Today - Restless legs syndrome NE electromyogram (EMG) Today R20.0 - Anesthesia of skin, R20.2 - Paresthesia of skin Medications: New ropinirole administer 1-3 hours before bedtime 0.25 mg PO BEDTIME 120 tabs 6RF magnesium oxide 400 mg PO BEDTIME 30 caps 6RF Discontinued pregabalin 50 mg PO BID 60 caps 5RF letrozole 2.5 mg PO DAILY 90 tabs 4RF letrozole 2.5 mg PO DAILY 90 tabs 4RF pregabalin 50 mg PO BID 60 caps 5RF Coding Level of Care Code New Pt Level 4 (16917) Diagnoses Restless legs syndrome (RLS) G2.81 Numbness and tingling R20.0; R20.2
== END 2023-07-14 11:52 | disposition home or self-care (01) ==
PROVIDERS: PCP Internal Medicine; Visit Provider Psychiatry & Neurology Neurology
DX: G25.81 Restless legs syndrome (principal); R20.0 Anesthesia of skin; R20.2 Paresthesia of skin
CPT/HCPCS: 99204

== ENCOUNTER → 2023-07-14 10:48 | Outpatient (BNVA) | payer OTHER, SELFPAY | PROVIDERS: PCP Internal Medicine; Visit Provider Psychiatry & Neurology Neurology | DX: G25.81 Restless legs syndrome (principal); R20.0 Anesthesia of skin; R20.2 Paresthesia of skin | CPT/HCPCS: 99202 ==

== ENCOUNTER 2023-07-16 09:14 | Outpatient (REF) | payer OTHER, SELFPAY ==
[2023-07-16 11:00] LABS: Ferritin 51 ng/mL (10-250); TSH reflex Free T4 1.04 uIU/mL (0.32-4.0)
[2023-07-16 11:07] LABS: Folate 10.7 ng/mL (> or = 4.0); Vitamin B12 399 pg/mL (200-900)
[2023-07-22 12:29] LABS: Vitamin D 25-OH, D2 <4 ng/mL; Vitamin D 25-OH, D3 35 ng/mL; Vitamin D 25-OH, Total 35 ng/mL (30-100)
== END 2023-07-16 09:15 | disposition home or self-care (01) ==
LOC: HO.LAB 09:14
PROVIDERS: PCP Internal Medicine; Visit Provider Psychiatry & Neurology Neurology
DX: G25.81 Restless legs syndrome (principal)
CPT/HCPCS: 36415; 82306; 82607; 82728; 82746; 84443

== ENCOUNTER 2023-08-04 09:02 | Outpatient (AMB) | payer OTHER, SELFPAY ==
--- NOTE | 2023-08-04 09:04 | MHC.OFFVIS ---
Intake Vital Signs 08/04/23 09:05 Height 5 ft Weight 130 lb BMI 25.4 BP 110/66 Blood Pressure Location Rt brachial Position Sitting Pulse 68 Intake Visit Reasons: 7 month breast exam Intake Note: This patient presents for a seven month follow-up breast examination assessment. Patient c/o; reports no changes at this time or breast complaints. 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 She was diagnosed to have a T1 N1 invasive ductal carcinoma of the left breast in October,. She says she is doing very well.? Her last mammogram was in August, and this was unremarkable. She says she is due for her mammogram again. ? She is currently on Lupron and letrozole and is being followed by Dr. Avelar. She has a little bit of neuropathy on both legs. [facility] Medical History Breast cancer, left History of breast cancer History of COVID-19 Invasive ductal carcinoma of breast Left breast mass Numbness and tingling Restless legs syndrome (RLS) Surgical History History of lumpectomy of left breast History of tubal ligation Surgical history unknown Family History Other Breast cancer Social History Household Members: Children Housing: House Are you a primary transitional care nurse to a significant other at home: No Do you presently have visiting nurse or other home services: No Alcohol intake: never Patient Tobacco Use Status: Never used Tobacco service: No Current occupational status: employed Female Reproductive History Menstrual Age of Menarche: 15 Review of Systems Const Denies chills and Denies fever(s) Card Denies chest pain, Denies dyspnea and Denies dyspnea on exertion Resp Denies cough, Denies dyspnea and Denies dyspnea on exertion GI Denies hematochezia and Denies change in bowel habits Denies hematuria Musc Denies back pain and Denies limited range of motion Neuro Details: Tingling and numbness of both lower extremities with neuropathy Denies focal weakness and Denies convulsions Psych Denies depression and Denies mood swings Physical Exam Const General: comfortable and no acute distress Orientation/consciousness: patient oriented x3 Neck Neck: Yes no lymphadenopathy Chest Other: No palpable breast masses, no axillary lymphadenopathy Resp Auscultation: clear to auscultation bilaterally Cardio Rhythm: regular rhythm GI Palpation (GI): Soft to palpation, nontender and no guarding Neuro General: patient oriented x3 Assessment & Plan Assessment & Plan (1) History of breast cancer: Code(s): Z85.3 - Personal history of malignant neoplasm of breast Plan: She had a T1 N1 invasive ductal carcinoma of the left breast. She had completed chemotherapy and is currently on letrozole and Lupron. She continues to follow-up with Dr. Avelar of Oncology. Current exam does not reveal any palpable breast masses or axillary lymphadenopathy I reminded her that she is due for her screening mammogram. I will see her again in 6 months unless her mammogram dictates an earlier follow-up. Medications: Discontinued pregabalin 50 mg PO BID 60 caps 5RF letrozole 2.5 mg PO DAILY 90 tabs 4RF letrozole 2.5 mg PO DAILY 90 tabs 4RF pregabalin 50 mg PO BID 60 caps 5RF Coding Level of Care Code Est Pt Level 3 (27028) Diagnoses History of breast cancer Z85.3
[2023-08-04 09:05] VITALS: BP 110/66; PULSE 68; BMI 25.4
== END 2023-08-04 09:18 | disposition home or self-care (01) ==
PROVIDERS: PCP Internal Medicine; Visit Provider Surgery
DX: Z85.3 Personal history of malignant neoplasm of breast (principal)
CPT/HCPCS: 99213

== ENCOUNTER → 2023-08-04 09:02 | Outpatient (BNVA) | payer OTHER, SELFPAY | PROVIDERS: PCP Internal Medicine; Visit Provider Surgery | DX: C50.912 Malignant neoplasm of unspecified site of left female breast (principal); Z79.811 Long term (current) use of aromatase inhibitors; Z92.21 Personal history of antineoplastic chemotherapy | CPT/HCPCS: 99212 ==

== ENCOUNTER 2023-08-09 12:08 | Outpatient (AMB) | payer OTHER, SELFPAY ==
[2023-08-09 12:18] VITALS: BP 114/62; BMI 25.2
--- NOTE | 2023-08-09 12:18 | MHC.OFFVIS ---
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 No complaints. Last Pap/HPV was in 06/13 was negative Last Mammogram was in 09/19 was BI-RADS 2 No previous screening colonoscopy [facility] Medical History Numbness and tingling Restless legs syndrome (RLS) History of breast cancer Invasive ductal carcinoma of breast History of COVID-19 Breast cancer, left Left breast mass Surgical History History of tubal ligation History of lumpectomy of left breast Surgical history unknown Family History Other Breast cancer Social History Household Members: Children Housing: House Are you a primary critical care transport nurse to a significant other at home: No Do you presently have visiting nurse or other home services: No Alcohol intake: never Patient Tobacco Use Status: Never used Tobacco Patient : No service: No Current occupational status: employed Female Reproductive History Menstrual Age of Menarche: 15 control method: permanent sterilization Total pregnancies: 2 Full term: 2 Number of Living Children: 2 Date of last pap smear: 06/26/16 (negative) History of abnormal pap smear: No Date of Mammogram: 09/24/22 Date of last Bone Density Screenin11/06/21 Review of Systems Const All systems reviewed & are unremarkable except as noted in HPI and below Card Reports as per HPI Resp Reports as per HPI GI Reports as per HPI and Reports no additional complaints Reports as per HPI Physical Exam Vital Signs: Last Vital Signs BP 114/62 08/09/23 12:18 BMI result Body Mass Index 25.2 Const General: cooperative, healthy appearing and comfortable Chest Chest palpation & inspection: normal inspection of the chest and normal palpation of entire chest wall Breast/axilla inspection: normal inspection of the breasts and normal inspection of the axillae Breast/axilla palpation: normal palpation of the breasts, normal palpation of the axillae and no axillary lymphadenopathy Resp Effort & Inspection: normal respiratory effort Auscultation: clear to auscultation bilaterally Percussion: percussion normal Cardio Palpation: normal PMI Rate: regular rate Rhythm: regular rhythm Heart sounds: no murmurs and no rubs Peripheral pulses: Peripheral pulses 2+ throughout GI Inspection: Yes normal to inspection Palpation (GI): Soft to palpation, nontender, no guarding, not rigid and No hepatosplenomegaly present Percussion: Yes normal to percussion Auscultation: normal bowel sounds Rectal Exam - Female: deferred General: Yes bladder normal to palpation External Female Exam: No lesion Speculum Exam - Vagina: normal appearance of the vagina, normal palpation, normal vaginal discharge and not erythematous Speculum Exam - Cervix: normal appearance of the cervix and normal palpation Bimanual exam- vagina & uterus: normal bimanual exam, normal palpation, uterine size normal, bladder normal to palpation, consistency normal and normal palpation Bimanual Exam- Adnexa, other: normal adnexae, no masses and no tenderness Assessment & Plan Assessment & Plan (1) Well woman exam: Code(s): Z01.419 - Encounter for gynecological examination (general) (routine) without abnormal findings Plan: Cotesting done. Mammogram ordered for 09/20. Counseled the patient about the recommended dietary allowance of 1000 mg of Calcium & 600 IU of vitamin D. The patient was instructed to perform monthly self-breast exams and to schedule an annual exam in a year; will refer the patient to GI for screening colonoscopy. All questions answered and the patient verbalized understanding. Instructed the patient to schedule annual exam in a year Orders: Orders MM screening mammo BI Today Z12.31 - Encounter for screening mammogram for malignant neoplasm of breast Referrals Gastroenterology Referral Z12.11 - Encounter for screening for malignant neoplasm of colon Coding Level of Care Code New Pt Prev Care 40-64y(96821) Diagnoses Well woman exam Z01.419
== END 2023-08-09 12:35 | disposition home or self-care (01) ==
PROVIDERS: PCP Internal Medicine; Visit Provider Obstetrics & Gynecology
DX: Z01.419 Encounter for gynecological examination (general) (routine) without abnormal findings (principal)
CPT/HCPCS: 99386

== ENCOUNTER 2023-08-09 12:08 | Outpatient (REF) | payer OTHER, SELFPAY ==
[2023-08-17 05:34] LABS: HPV 16 RNA NOT DETECTED (NOT DETECTED); HPV mRNA E6/E7 rflx Detected (Not Detected)
== END 2023-08-09 12:09 | disposition home or self-care (01) ==
LOC: HO.LNP 12:08
PROVIDERS: PCP Internal Medicine; Visit Provider Obstetrics & Gynecology
DX: Z01.419 Encounter for gynecological examination (general) (routine) without abnormal findings (principal)
CPT/HCPCS: 87624; 87625; 88142

== ENCOUNTER 2023-08-20 09:08 | Outpatient (REF) | payer OTHER, SELFPAY ==
--- NOTE | 2023-08-20 09:11 | EMG_ITS ---
Chief complaint: Feet numbness Reason for referral: Evaluate for neuropathy Referred by: Dr. Stark Procedure done: Bilateral lower extremity NCS/EMG Precautions and/or limitations: None The limb temperature was monitored continuously and remained between 32-36 degrees C during the performance of the NCS. Nerve Conduction Studies Anti Sensory Summary Table ?Stim Site NR Onset (ms) Norm Onset (ms) Peak (ms) Norm Peak (ms) O-P Amp (?V) Norm O-P Amp Site1 Site2 Delta-0 (ms) Dist (cm) Zohaib (m/s) Norm Zohaib (m/s) Left Sural Anti Sensory (Lat Mall) Calf ? 2.7 3.2 <4.0 11.1 >5.0 Calf Lat Mall 2.7 14.0 52 Right Sural Anti Sensory (Lat Mall) Calf ? 2.7 3.3 <4.0 10.5 >5.0 Calf Lat Mall 2.7 14.0 52 Motor Summary Table ?Stim Site NR Onset (ms) Norm Onset (ms) O-P Amp (mV) Norm O-P Amp iAmp (mV) Amp (1st) (%) Site1 Site2 Delta-0 (ms) Dist (cm) Zohaib (m/s) Norm Zohaib (m/s) Left Peroneal Motor (Ext Dig Brev) Ankle ? 3.8 <4.0 5.0 >2.5 6.0 100.0 Ankle Ext Dig Brev 3.8 0.0 B Fib ? 9.5 4.7 5.7 94.0 B Fib Ankle 5.7 29.5 52 >40 Poplt ? 10.0 4.7 5.6 94.0 Poplt B Fib 0.5 4.0 80 >40 Right Peroneal Motor (Ext Dig Brev) Ankle ? 3.6 <4.0 5.7 >2.5 6.8 100.0 Ankle Ext Dig Brev 3.6 0.0 B Fib ? 9.4 5.3 6.3 93.0 B Fib Ankle 5.8 29.0 50 >40 Poplt ? 9.9 5.2 6.1 91.2 Poplt B Fib 0.5 4.5 90 >40 Left Tibial Motor (Abd Tubbs Brev) Ankle ? 3.2 <5 9.8 >2.5 13.8 100.0 Ankle Abd Tubbs Brev 3.2 0.0 Knee ? 10.2 11.9 16.6 121.4 Knee Ankle 7.0 36.0 51 >40 Right Tibial Motor (Abd Tubbs Brev) Ankle ? 3.2 <5 7.3 >2.5 11.6 100.0 Ankle Abd Tubbs Brev 3.2 0.0 Knee ? 9.9 4.0 6.5 54.8 Knee Ankle 6.7 35.0 52 >40 EMG ?Side Muscle Nerve Root Ins Act Fibs Psw Amp Dur Poly Recrt Int Pat Comment Right AbdHallucis MedPlantar S1-2 Nml Nml Nml Nml Nml 0 Nml Complete Right AntTibialis Dp Br Peron L4-5 Nml Nml Nml Nml Nml 0 Nml Complete Right PostTibialis Tibial L5, S1 Nml Nml Nml Nml Nml 0 Nml Complete Right MedGastroc Tibial S1-2 Nml Nml Nml Nml Nml 0 Nml Complete Right VastusMed Femoral L2-4 Nml Nml Nml Nml Nml 0 Nml Complete Left AbdHallucis MedPlantar S1-2 Nml Nml Nml Nml Nml 0 Nml Complete Left AntTibialis Dp Br Peron L4-5 Nml Nml Nml Nml Nml 0 Nml Complete Left PostTibialis Tibial L5, S1 Nml Nml Nml Nml Nml 0 Nml Complete Left MedGastroc Tibial S1-2 Nml Nml Nml Nml Nml 0 Nml Complete Left VastusMed Femoral L2-4 Nml Nml Nml Nml Nml 0 Nml Complete FINDINGS: All motor and sensory nerves tested showed normal latencies, amplitudes and conduction velocities. Concentric needle EMG was performed in selected muscles of the bilateral lower extremity. Study did not reveal signs of electric abnormalities as shown in the table below. IMPRESSION: 1. This is a normal study. 2. There is no electrodiagnostic evidence for peroneal neuropathy, tibial neuropathy, lumbosacral plexopathy, lumbar radiculopathy, or peripheral neuropathy. Thank you for your kind referral. Mikala Hubbard MD, MARIELA Board Certified, [place] [employer] and Rehabilitation (ABPMR) Board Certified, [place] Board of Electrodiagnostic Medicine (ABEM) CODIN [id number] x 2 [facility]
== END 2023-08-20 09:09 | disposition home or self-care (01) ==
LOC: HO.NEURO 09:08
PROVIDERS: PCP Internal Medicine; Visit Provider Psychiatry & Neurology Neurology
DX: R20.0 Anesthesia of skin (principal); R20.2 Paresthesia of skin
CPT/HCPCS: 95886; 95909

== ENCOUNTER → 2023-08-20 09:11 | Outpatient (BNV) | payer OTHER, SELFPAY | PROVIDERS: PCP Internal Medicine; Visit Provider Physical Medicine & Rehabilitation | DX: R20.2 Paresthesia of skin (principal) | CPT/HCPCS: 95886; 95909 ==

== ENCOUNTER 2023-09-30 12:45 | Outpatient (REF) | payer OTHER, SELFPAY ==
--- NOTE | ~2023-09-30 | MM_ITS ---
EXAMINATION: MM DIAGNOSTIC DIGITAL BREAST TOMOSYNTHESIS, BILATERAL CLINICAL INFORMATION: Left breast invasive cancer with ductal and lobular features status post lumpectomy 09/23/2021. Due for yearly. Year 2 follow-up. COMPARISON: Mammography: 09/24/2022, 08/21/2021, 08/15/2021, MRI breast 11/05/2021. TECHNIQUE: Digital breast tomosynthesis is performed in both the craniocaudal and mediolateral oblique views along with computer-aided detection (CAD). Synthesized 2D images are generated from the tomosynthesis. In addition to standard views, spot magnification left CC and ML views were obtained of the left breast. FINDINGS: The breasts are heterogeneously dense, which may obscure small masses (ACR BI-RADS breast composition Category c). There are stable post therapy changes within the left breast with mild reduced breast size, scar present slightly inferiorly and laterally, skin and trabecular thickening from presumed radiation, improving. Otherwise, no gross interval change in the appearance of the scar resection cavity. No additional suspicious findings in the left breast or axilla. Once again, no biopsy clip is identified within the left breast. The right chest port has been removed. There are tiny punctate vascular calcifications in the inferior medial right breast. These are unchanged. There are no suspicious masses, suspicious grouped calcifications, or developing areas of architectural distortion in either breast. The overall parenchymal pattern is stable from prior exams. MM/MM tomosynthesis diagnostic BI IMPRESSION: Similar evolving post treatment related changes left breast from lumpectomy and treatment. No findings suspicious for malignancy in either breast. Stable benign findings. ASSESSMENT: BI-RADS BI-RADS 2 - Benign Findings RECOMMENDATION: 1 year F/U Results were provided to the patient at time of visit by the technologist. This patient's information was entered into a reminder system with a target due date for their next mammogram.
== END 2023-09-30 12:46 | disposition home or self-care (01) ==
LOC: HO.MAMMO 12:45
PROVIDERS: PCP Internal Medicine; Visit Provider Internal Medicine
DX: Z85.3 Personal history of malignant neoplasm of breast (principal)
CPT/HCPCS: 77062; 77066

== ENCOUNTER → 2023-09-30 13:00 | Outpatient (BNV) | payer OTHER, SELFPAY | PROVIDERS: PCP Internal Medicine; Visit Provider Radiology Diagnostic Radiology | DX: Z85.3 Personal history of malignant neoplasm of breast (principal) | CPT/HCPCS: 77062; 77066 ==

== ENCOUNTER 2023-10-05 08:22 | Outpatient (AMB) | payer OTHER, SELFPAY ==
--- NOTE | 2023-10-05 08:42 | A.OFFVIS_ITS ---
Intake Vital Signs 10/05/23 08:44 Weight 126 lb 2 oz BP 98/58 L Blood Pressure Location Rt brachial Position Sitting Pulse 72 Pulse Source Pulse Oximeter Pulse Oximetry (%) 98 Oxygen Delivery Method Room Air Intake Visit Reasons: 2M f/u Peripheral Neuropathy - LVM Intake Note: F/U Neuropathy, states she still has pain and pressure Stem Cleaning Machine Feeder Required: No Allergies gabapentin Adverse Reaction (Severe, Verified 10/05/23 13:46) suicidal thoughts HPI HPI Comments History of Present Illness Details 47y/o female with h/o breast cancer come s for follow up of bilateral feet neuropathy. EMG report reviewed. 1. This is a normal study. 2. There is no electrodiagnostic evidenc e for peroneal neuropathy, tibial neuropathy, lumbosacral plexopathy, lumbar radiculopathy, or peripheral neuropathy. Pt reports soak her feet in the Epson salt water helped to reduce her feet pain. Pt's bilateral feet pain mostly bothersome during daytime. She has more pain while she walk. 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 Pt uses ropinirole 0.25 mg, 1-4 tab as needed. She sleeps well with Lyrica 50 q HS. She denies any back pain and neck pain. Pt was tried on gabapentin but she could not tolerate - had suicidal thoughts. [facility] Medical History Numbness and tingling Restless legs syndrome (RLS) History of breast cancer Invasive ductal carcinoma of breast History of COVID-19 Breast cancer, left Left breast mass Surgical History History of tubal ligation History of lumpectomy of left breast Surgical history unknown Family History (Updated 10/05/23 @ 13:47 by FROY La) Maternal Aunt Breast cancer Social History Household Members: Children Housing: House Are you a primary physician assistant primary care to a significant other at home: No Do you presently have visiting nurse or other home services: No Alcohol intake: never Patient Tobacco Use Status: Never used Tobacco service: No Current occupational status: employed Female Reproductive History Menstrual Age of Menarche: 15 Review of Systems Const All systems reviewed & are unremarkable except as noted in HPI and below Physical Exam Vital Signs: Last Vital Signs Pulse 72 10/05/23 08:44 BP 98/58 L 10/05/23 08:44 Pulse Ox 98 10/05/23 08:44 Oxygen Delivery Method Room Air 10/05/23 08:44 Const General: cooperative, healthy appearing and comfortable Nutritional Appearance: average body habitus Orientation/consciousness: patient oriented x3 Eyes Pupils: Equal, round and reactive pupils present Neuro General: patient oriented x3, gait normal, tone normal, moves all extremities and no focal motor deficits Cranial nerves: Yes Facial sensation intact/muscles of mastication intact, Yes Equal, round and reactive pupils present, Yes Bilaterally intact EOM present, Yes Nystagmus not present, Yes Normal facial strength present and Yes Midline tongue present Cognition (Neuro): normal cognition Gait exam (Neuro): Normal gait present Motor exam (neuro): 5/5 motor strength present throughout and Normal motor muscle tone present throughout Sensory Exam: other (normal PP touch ) Deep tendon reflexes (DTR's): Right triceps reflex intensity grade: 2+, Left triceps reflex intensity grade: 2+, Rt Biceps (C5, C6): 2+, Left biceps reflex intensity grade: 2+, Right brachioradialis reflex intensity grade: 2+, Left brachioradialis reflex intensity grade: 2+, Right patellar reflex intensity grade: 2+, Left patellar reflex intensity grade: 2+, Right ankle reflex intensity grade: 2+ and Left ankle reflex intensity grade: 2+ Coordination: [id number] test normal Assessment & Plan Assessment & Plan (1) Restless legs syndrome (RLS): Comment: pressure and discomfort at rest with some relief on movement Code(s): G25.81 - Restless legs syndrome (2) Numbness and tingling: Comment: ? restless legs ? neuropathy ( unlikely) Code(s): R20.0 - Anesthesia of skin; R20.2 - Paresthesia of skin Plan Pt's neuropathy is most bothersome during daytime. Advised patient to try lyrica 12.5-25 mg during daytime. May continue to take ropinirole 0.25 mg 1-4 tabs a day. Coding Level of Care Code Est Pt Level 4 (84340) Diagnoses Restless legs syndrome (RLS) G25.81 Numbness and tingling R20.0; R20.2
[2023-10-05 08:44] VITALS: BP 98/58; PULSE 72; O2SAT 98
== END 2023-10-05 09:07 | disposition home or self-care (01) ==
PROVIDERS: PCP Internal Medicine; Visit Provider Nurse Practitioner Family
DX: G25.81 Restless legs syndrome (principal); R20.0 Anesthesia of skin; R20.2 Paresthesia of skin
CPT/HCPCS: 99214

== ENCOUNTER → 2023-10-05 08:22 | Outpatient (BNVA) | payer OTHER, SELFPAY | PROVIDERS: PCP Internal Medicine; Visit Provider Nurse Practitioner Family | DX: Z01.818 Encounter for other preprocedural examination (principal); G25.81 Restless legs syndrome; R20.0 Anesthesia of skin; R20.2 Paresthesia of skin; Z79.899 Other long term (current) drug therapy | CPT/HCPCS: 99202; 99212 ==

== ENCOUNTER 2023-10-05 13:29 | Outpatient (AMB) | payer OTHER, SELFPAY ==
--- NOTE | 2023-10-05 13:32 | MHC.OFFVIS ---
Intake Vital Signs 10/05/23 13:38 Height 5 ft Weight 125 lb 10.616 oz BMI 24.5 BP 126/61 Blood Pressure Location Rt brachial Position Sitting Pulse 73 Intake Visit Reasons: Colonoscopy Screening Intake Note: Patient presents to in office visit today as a new patient for colonoscopy screening. CC: Patient reports she has constipation sometimes. Denies having other GI symptoms today. Allergies gabapentin Adverse Reaction (Severe, Verified 10/05/23 13:46) suicidal thoughts HPI Colonoscopy Screening HPI Details 47-year-old female here for preprocedural meeting to discuss a screening colonoscopy. She is referred by alexia Mcneal. PMX Breast cancer Restless legs syndrome Foot pain tarsal joints * SURGICAL HISTORY Tubal ligation Lumpectomy of the left breast * ALLERGIES Gabapentin - SI * Managed Systems LABS: Laboratory Tests 12/29/21 05/17/23 07/16/23 15:05 15:15 09:20 WBC 7.3 Hgb 11.6 L Hct 35.4 L MCV 86.8 MCH 28.4 Plt Count 260 Estimated GFR 40 Total Bilirubin 0.2 AST 19 ALT 15 Alkaline Phosphata se 73 TSH 1.04 Hepatitis A IgM Ab Nonreactive Hep Bs Antigen (2) NEGATIVE Hep Bs Antibody NONREACTIVE Hep B Core Total A b Nonreactive Hepatitis C Ab (EI A) Nonreactive TODAY'S VISIT This is her first colonoscopy. She suffers CIC when she travels only, and she denies any upper GI problems. There are no prior problems with anesthesia or sedation. She denies any cardiac or respiratory problems. No ID problems There is no known FHX of CRC or polyps. [facility] Medical History Numbness and tingling Restless legs syndrome (RLS) History of breast cancer Invasive ductal carcinoma of breast History of COVID-19 Breast cancer, left Left breast mass Surgical History History of tubal ligation History of lumpectomy of left breast Surgical history unknown Family History (Updated 10/05/23 @ 13:47 by FROY La) Maternal Aunt Breast cancer Social History Household Members: Children Housing: House Are you a primary customer care team coach to a significant other at home: No Do you presently have visiting nurse or other home services: No Alcohol intake: never Patient Tobacco Use Status: Never used Tobacco service: No Current occupational status: employed Female Reproductive History Menstrual Age of Menarche: 15 Review of Systems Const Denies fatigue, Denies fever(s), Denies night sweats, Denies poor appetite and Denies weight loss Eyes Details: glasses Reports requires corrective lenses ENT Reports Normal hearing present, Denies dental pain, Denies dysphagia, Denies hearing loss, Denies mouth pain, Denies odynophagia, Denies throat swelling, Denies tongue swelling and Reports other (Dentition adequate) Card Reports no additional complaints Resp Reports no additional complaints GI Denies abdominal pain, Denies melena, Denies bloating, Denies hematochezia, Reports constipation, Denies GI cramping, Denies dysphagia, Denies excessive flatus, Denies early satiety, Denies heartburn, Denies diarrhea, Denies nausea, Denies odynophagia, Denies vomiting and Denies hematemesis Skin/Breast Denies pruritus, Denies lesions, Denies rash and Denies jaundice Neuro Reports Normal hearing present and Denies Abnormal speech present Endo Denies fatigue Aller/Immun Denies throat swelling and Denies tongue swelling Physical Exam Vital Signs: Last Vital Signs Pulse 73 10/05/23 13:38 BP 126/61 10/05/23 13:38 BMI result Body Mass Index 24.5 Const General: cooperative, no acute distress, well developed and well groomed Nutritional Appearance: average body habitus and well nourished Orientation/consciousness: oriented to person, oriented to place and oriented to time Limitations: No language barrier HEENT Head: Yes normocephalic and Yes atraumatic Eyes General: appearance normal, both eyes and all related structures Pupils: Equal, round and reactive pupils present Neck Neck: Yes normal visual inspection and Yes no lymphadenopathy Thyroid: Thyroid normal Resp Effort & Inspection: normal respiratory effort and able to speak in complete sentences Auscultation: clear to auscultation bilaterally Cardio Rate: regular rate Rhythm: regular rhythm Heart sounds: Normal, physiologic split S2 sound present Peripheral pulses: radial pulses present and posterior tibial pulses present GI Inspection: No distended, No Abdominal panniculus present and Yes striae Palpation (GI): Soft to palpation, nontender, no guarding, not rigid and No hepatosplenomegaly present Percussion: Yes normal to percussion Auscultation: normal bowel sounds Rectal Exam - Female: deferred Skin General skin exam: no rashes or lesions noted, turgor normal, skin not dry, no jaundice, No spider nevi and no striae Rashes: no rashes Nails: normal Neuro General: oriented to person, oriented to place and oriented to time Cranial nerves: Yes Equal, round and reactive pupils present and Yes Normal hearing present Speech: No Abnormal speech present Extrem General: Yes normal to inspection, No clubbing, No cyanosis and No edema Psych Appearance: grossly normal and well kempt Mental Status: mental status grossly normal Speech and movement: Normal speech and movement present Affect: normal affect Attitude: cooperative Thought process: Normal thought process present and not confabulating Thought content: Normal thought content present Insight: Fair insight present (Psych) Judgement: Fair judgement present (Psych) Assessment & Plan Assessment & Plan (1) Pre-op examination: Code(s): Z01.818 - Encounter for other preprocedural examination Plan: This is her first colonoscopy. She suffers CIC when she travels only, and she denies any upper GI problems. There are no prior problems with anesthesia or sedation. She denies any cardiac or respiratory problems. No ID problems There is no known FHX of CRC or polyps. Orders: Orders Colonoscopy - GI Use Only 10/05/23 Z01.818 - Encounter for other preprocedural examination Medications: New peg 3350-electrolytes 236-22.74-6.74 -5.86 gram (Golytely) until fecal effluent is clear; do not exceed a total volume of 2,000 mL 240 mL PO Q10M 4,000 mL 0RF 1 day Z12.11 - Encounter for screening for malignant neoplasm of colon Coding Level of Care Code New Pt Level 3 (30366) Diagnoses Pre-op examination Z01.818
[2023-10-05 13:38] VITALS: BP 126/61; PULSE 73; BMI 24.5
== END 2023-10-05 14:41 | disposition home or self-care (01) ==
PROVIDERS: PCP Internal Medicine; Visit Provider Nurse Practitioner
DX: Z01.818 Encounter for other preprocedural examination (principal)
CPT/HCPCS: 99203

== ENCOUNTER 2024-02-14 15:16 | Outpatient (AMB) | payer OTHER, SELFPAY ==
--- NOTE | 2024-02-14 15:21 | MHC.OFFVIS ---
Intake Vital Signs 02/14/24 15:27 Height 5 ft Weight 126 lb 4 oz BMI 24.7 BP 118/56 L Blood Pressure Location Lt brachial Position Sitting Pulse 62 Intake Visit Reasons: 6 month breast exam Intake Note: Patient is seen in office for 6 month follow up visit, breast exam. Pt c/o: denies any concerns regarding the breast, has not done self exam mm:09/30/23 Cloth Folder Hand Required: No Accompanied by: Self / Same As Patient Allergies gabapentin Adverse Reaction (Severe, Verified 02/14/24 15:26) suicidal thoughts HPI 6 month breast exam HPI Details She is here for a follow-up for sujey st cancer. ? She was diagnosed to h marlin a T1 N1 invasi ve ductal carcinom a of the left sujey st in October,. She had lumpe ctomy, sentinel bi opsy and postop ra diation at that ti me. She says she is doing very well .? Her last mammog sidra was in 2022 and and th is did not show messer spicious findings. ? She remains cu rrently on Lupron and letrozole and is being followed by Dr. Avelar. Sh estiven has a little bit of neuropathy on both legs. [facility] Medical History Numbness and tingling Restless legs syndrome (RLS) History of breast cancer Invasive ductal carcinoma of breast History of COVID-19 Breast cancer, left Left breast mass Surgical History History of tubal ligation History of lumpectomy of left breast Surgical history unknown Family History Maternal Aunt Breast cancer Social History Household Members: Children Housing: House Are you a primary resident care coordinator to a significant other at home: No Do you presently have visiting nurse or other home services: No Alcohol intake: never Patient Tobacco Use Status: Never used Tobacco service: No Current occupational status: employed Female Reproductive History Menstrual Age of Menarche: 15 Review of Systems Const Denies chills and Denies fever(s) Card Denies chest pain, Denies dyspnea and Denies dyspnea on exertion Resp Denies cough, Denies dyspnea and Denies dyspnea on exertion GI Denies hematochezia and Denies change in bowel habits Denies hematuria Musc Denies back pain and Denies limited range of motion Neuro Denies focal weakness and Denies convulsions Psych Denies depression and Denies mood swings Physical Exam Const General: comfortable and no acute distress Orientation/consciousness: patient oriented x3 Neck Neck: Yes no lymphadenopathy Chest Other: No palpable breast masses, no nipple or skin changes, no axillary lymphadenopathy Resp Auscultation: clear to auscultation bilaterally Cardio Rhythm: regular rhythm GI Palpation (GI): Soft to palpation, nontender and no guarding Neuro General: patient oriented x3 Assessment & Plan Assessment & Plan (1) History of breast cancer: Code(s): Z85.3 - Personal history of malignant neoplasm of breast Plan: She has history of breast cancer in 2020. She had undergone lumpectomy, sentinel biopsy, and postop radiation. Her last mammogram was in September,. This does not reveal any suspicious findings I current exam does not reveal any palpable breast masses or any axillary lymphadenopathy. I explained to her that she should continue with regular yearly screening mammograms. She is to follow-up with Dr. Avelar of Oncology as well. Coding Level of Care Code Est Pt Level 3 (86389) Diagnoses History of breast cancer Z85.3
[2024-02-14 15:27] VITALS: BP 118/56; PULSE 62; BMI 24.7
== END 2024-02-14 15:36 | disposition home or self-care (01) ==
PROVIDERS: PCP Internal Medicine; Visit Provider Surgery
DX: Z85.3 Personal history of malignant neoplasm of breast (principal)
CPT/HCPCS: 99213

== ENCOUNTER → 2024-02-14 15:16 | Outpatient (BNVA) | payer OTHER, SELFPAY | PROVIDERS: PCP Internal Medicine; Visit Provider Surgery | DX: Z85.3 Personal history of malignant neoplasm of breast (principal) | CPT/HCPCS: 99212 ==

== ENCOUNTER 2024-08-22 06:26 | Day surgery (SDC) | payer SELFPAY ==
--- NOTE | 2024-08-18 12:58 | P.CONAN_ITS ---
Documented by User: Lluvia Chavez NP 08/18/24 12:58 HPI - Anesthesia Eval Consult details Narrative: 48yo F for Colonoscopy PMFSH Active Problems Active Problems: All Active Problems Pre-op examination (Acute) Well woman exam (Acute) Numbness and tingling (Acute) Restless legs syndrome (RLS) (Acute) History of breast cancer (Acute) Invasive ductal carcinoma of breast (Acute) Breast cancer, left (Acute) Left breast mass (Acute) Past Medical History Medical History Numbness and tingling Restless legs syndrome (RLS) History of breast cancer Invasive ductal carcinoma of breast History of COVID-19 Breast cancer, left Left breast mass Family History Family History Maternal Aunt Breast cancer Family history of problems with anesthesia: No Surgical History Surgical History History of tubal ligation History of lumpectomy of left breast Surgical history unknown History of Problems with Anesthesia: No Social History Social History Household Members: Children Housing: House Are you a primary clinical care manager to a significant other at home: No Do you presently have visiting nurse or other home services: No Alcohol intake: never Patient Tobacco Use Status: Never used Tobacco Use of substances other than those prescribed or required for medical reasons: No Are you DNR?: No Advance Directives: No Advance Directives Information Provided: Yes Advance Directives on File: No Recently lost weight without trying: No How much weight loss: 2-13 pounds Nutrition Risks: No Nutritional Risk Patient : No service: No Current occupational status: employed Meds Allergies Allergy/AdvReac Type Severity Reaction Status Date / Time gabapentin AdvReac Severe suicidal Verified 02/15/24 14:43 thoughts Home Medications ?Medication ?Instructions ?Recorded ?Confirmed ?Last Taken ?Type pregabalin 50 mg capsule (Lyrica) 50 mg PO BID 07/14/23 02/15/24 Unknown History Assessment and Plan Assessment Anesthesia Assessment: Chart Reviewed Final Anesthetic Review Family History of Problems with Anesthesia: No History of Problems with Anesthesia: No Documented by User: Sun Philippe MD 08/22/24 07:31 PMFSH Past Medical History Medical History Numbness and tingling Restless legs syndrome (RLS) History of breast cancer Invasive ductal carcinoma of breast History of COVID-19 Breast cancer, left Left breast mass Family History Family History Maternal Aunt Breast cancer Surgical History Surgical History History of tubal ligation History of lumpectomy of left breast Surgical history unknown Social History Social History Household Members: Children Housing: House Are you a primary clinical care manager to a significant other at home: No Do you presently have visiting nurse or other home services: No Alcohol intake: never Patient Tobacco Use Status: Never used Tobacco Use of substances other than those prescribed or required for medical reasons: No Are you DNR?: No Advance Directives: No Advance Directives Information Provided: Yes Advance Directives on File: No Recently lost weight without trying: No How much weight loss: 2-13 pounds Nutrition Risks: No Nutritional Risk Patient : No service: No Current occupational status: employed Meds Allergies Allergy/AdvReac Type Severity Reaction Status Date / Time gabapentin AdvReac Severe suicidal Verified 02/15/24 14:43 thoughts Home Medications ?Medication ?Instructions ?Recorded ?Confirmed ?Last Taken ?Type pregabalin 50 mg capsule (Lyrica) 50 mg PO BID 07/14/23 02/15/24 Unknown History Exam Airway Mallampati Class: II TM Dist: >3cm Neck ROM: Full Loose/Missing/Broken Teeth: No Heart: RRR Lungs: CTA Assessment and Plan Assessment Anesthesia Assessment: Anesthesia Plan Discussed Final Anesthetic Review NPO: Yes ASA Class: II Final Preanesthetic Review: Meds/Allgs Chart Reviewed, Consent Obtained/Reviewed and Anes Risks/Benef Reviewed Patient Risk: Low Procedure Risk: Low Anesthetic Plan Anesthetic Plan: MAC: Disposition: Standard PACU
[2024-08-22 06:53] VITALS: BMI 22.4
[2024-08-22 06:55] VITALS: BP 118/75; PULSE 64; RESP 16; TEMP 37.1; O2SAT 100
[2024-08-22] MEDS: Lactated Ringers 1,000 ML 100 ML IVCONT (07:16)
--- NOTE | 2024-08-22 08:02 | MHC.SHP ---
Pre-Procedural Eval Section A - 24 Hr Update-Section A only Date of Service: 08/22/24 Section B - Complete if H&P > 30 days Chief Complaint: Encounter for screening for malignant neoplasm of Details of Present Illness: Numbness and tingling Restless legs syndrome (RLS) History of breast cancer Invasive ductal carcinoma of breast History of COVID-19 Breast cancer, left Left breast mass Surgical History History of tubal ligation History of lumpectomy of left breast Surgical history unknown Allergies: Allergies Allergy/AdvReac Type Severity Reaction Status Date / Time gabapentin AdvReac Severe suicidal Verified 02/15/24 14:43 thoughts Review of Systems Review of Systems Comment: Ten point ROS negative Exam Exam Comment: Gen appear: No acute distress HEENT: no icterus Chest: No overt resp distress Abd: soft, nontender, nondistended Psych: Stable affect, answering questions appropriately Neuro: A/Ox3 noted to move all extremities spontaneously Ext: no peripheral edema Plan Diagnosis/Plan: Unchanged I have reviewed the history and physical and performed a pertinent physical examination on my patient. No changes have occurred unless specified. Time Spent With Patient Time: Total time managing care of this patient today ____ minutes.
[2024-08-22 08:30] VITALS: BP 100/42; PULSE 62; RESP 18; TEMP 36.3; O2SAT 99
--- NOTE | 2024-08-22 08:35 | P.OPN-COLO_ITS ---
Colonoscopy Operative Note Operative Note Date of Service: 08/22/24 Narrative: Procedure: Colonoscopy Indication: Screening Endoscopist: Cate Delong MD Anesthesia Provider: Dr Nalini Philippe Anesthesia type: MAC Instrument: Olympus [id number]-[id number] Consent: Indication, risks vs benefits, and alternatives were discussed with the patient who gave written informed consent to proceed. EKG, pulse, pulse oximetry and blood pressure were monitored throughout the procedure. Please see anesthesia flowsheet. Procedure: The patient was brought to the procedure room and placed in the left lateral decubitus position. IV medications were administered by the anesthesia provider in attendance. A digital rectal exam was performed which was abnormal due to finding of hemorrhoids. A distal attachment cap was affixed to the tip of the colonoscope which was then inserted through the anus and advanced through the colon to the cecum at 75 cm,and terminal ileum. Appendiceal orifice and ileocecal valve were identified. Mucosa was carefully examined under high definition white light as the instrument was slowly withdrawn in a retrograde panoramic fashion. Retroflexion was performed in ascending colon and rectum. The procedure was not difficult. There were no immediate obvious complications. The quality of the prep was BBPS: 3+2+3 = adequate Withdrawal time 6 minutes. Limitations: No limitations. Findings: Mucosa: Hyperpigmented mucosa throughout the whole colon consistent with melanosis coli. Otherwise normal to cecum and terminal ileum. Protruding lesions: * Large external hemorrhoids with stigmata of recent bleeding. Impression: 1. Melanosis coli 2. External and internal hemorrhoids Recommendations: - repeat colonoscopy in 10 years for asymptomatic colorectal cancer screening
[2024-08-22 08:45] VITALS: BP 129/66; PULSE 60; RESP 18; TEMP 36.3; O2SAT 100
== END 2024-08-22 09:29 | disposition home or self-care (01) ==
PROVIDERS: PCP Internal Medicine; Visit Provider Internal Medicine
PROC: 0DJD8ZZ Inspection of Lower Intestinal Tract, Via Natural or Artificial Opening Endoscopic (ICD-10-PCS; CPT 45378; principal; 2024-08-22 07:40)
DX: Z12.11 Encounter for screening for malignant neoplasm of colon (principal); K63.89 Other specified diseases of intestine; K64.8 Other hemorrhoids; K64.4 Residual hemorrhoidal skin tags; Z85.3 Personal history of malignant neoplasm of breast; G25.81 Restless legs syndrome; Z79.899 Other long term (current) drug therapy; Z88.8 Allergy status to other drugs, medicaments and biological substances; Z98.51 Tubal ligation status; Z98.890 Other specified postprocedural states
CPT/HCPCS: 45378; J2704

== ENCOUNTER → 2024-08-22 06:26 | Outpatient (BNV) | payer SELFPAY | PROVIDERS: PCP Internal Medicine; Visit Provider Internal Medicine | DX: Z12.11 Encounter for screening for malignant neoplasm of colon (principal); K63.89 Other specified diseases of intestine; K64.8 Other hemorrhoids | CPT/HCPCS: 45378 ==